=== PATIENT | male | born 1940 | race Caucasian/White ===

== ENCOUNTER 2017-04-29 11:54 | Emergency (ER) | payer OTHER ==
[2017-04-29] MEDS ORDERED: NS 1,000 ML IV ONE (12:39)
--- NOTE | 2017-04-29 12:59 | EDPHY ---
H & P Stated Complaint: cough, fall from bed Time Seen by Provider: 04/29/17 12:28 - Personal History Current Tetanus/Diphtheria Vaccine: No Current Tetanus Diphtheria and Acellular Pertussis (TDAP): No - Medical/Surgical History Hx Asthma: No Hx Chronic Respiratory Disease: No Hx Diabetes: Yes Hx Cardiac Disease: Yes Hx Renal Disease: No Hx Cirrhosis: No Hx Alcoholism: No Hx HIV/AIDS: No Hx Splenectomy or Spleen Trauma: No Other PMH: CAD, 8 cardiac stents, NV, CABG, R hip repair, DM, - Social History Smoking Status: Never smoked Constitutional: Initial Vital Signs Temperature (C) 37 C 04/29/17 12:01 Heart Rate 111 H 04/29/17 12:01 Respiratory Rate 20 04/29/17 12:01 Blood Pressure 147/89 H 04/29/17 12:01 O2 Sat (%) 90 L 04/29/17 12:01 O2 Delivery Mode Room Air Allergies/Adverse Reactions: No Known Allergies Allergy (Unverified 04/29/17 11:59) Home Medications: Medication Instructions Recorded Isosorbide Dinitrate 04/29/17 Lantus 100 UNITS/ML (*) 04/29/17 Lisinopril 04/29/17 Metoprolol Tartrate 04/29/17 Oxycodone HCl 04/29/17 Pantoprazole Sodium 04/29/17 Plavix 04/29/17 traMADol 04/29/17 Medical Decision Making - Diagnostics Imaging Results: Imaging Impressions Chest X-Ray 04/29/17 12:38 Impression: 1. Previous open heart surgery. 2. No active cardiopulmonary disease seen. Imaging: Discussed imaging studies w/ machine scallop cutter Radiologist, I viewed and interpreted images myself ED Course/Re-evaluation: CHIEF COMPLAINT: Fevers chills cough and a fall this morning HISTORY OF PRESENT ILLNESS: Anticoagulated 76-year-old gentleman whose is currently admitted to the hospital for significant influenza with hypoxemia. Began getting ill around new 's Lorie. His symptoms have developed to the point where he really can't out of bed without assistance because he is too weak. His daughter is at the bedside and he is unable to really come down to eat and drink in even if she brings food and soup up to him he does not really seem to eat or drink much. He is quite alert and oriented and really she is complaining of generalized body aches and weakness and cough is not very significant. He is also complaining of some right hip pain and lower abdominal pain after his fall when he got up in the middle the night to try and go to the bathroom. He said he only fell onto a carpet from level of the bed and he was able to ambulate afterward however he has significant pain in the right side of his pelvis when he does ambulate. He has a significant cardiac history but none the symptoms are reminiscent of any cardiac process he has had. REVIEW OF SYSTEMS: A 10 point review of systems was performed and is negative with the exception of the elements mentioned in the history of present illness. PHYSICAL EXAM: HR, BP, O2 Sat, RR. Temp noted General Appearance: Alert, well hydrated, appropriate, and non-toxic appearing. Head: Atraumatic without scalp tenderness or obvious injury Eyes: Pupils equal, round, reactive to light and accommodation, EOMI, no trauma , no injection. Ears: Clear bilaterally, no perforation, normal landmarks Nose: Atraumatic, no rhinorrhea, clear. Throat: There is no erythema or exudates, no lesions, normal tonsils, mucus membranes moist. Neck: Supple, 2+ carotid upstroke, nontender, no lymphadenopathy. Respiratory: No retractions, no distress, no wheezes, and no accessory muscle use. Lungs are clear to auscultation bilaterally. Cardiovascular: Regular rate and rhythm, no murmurs, rubs, or gallops. Bilateral carotid, radial, dorsalis pedis, and posterior tibial pulses intact. Good capillary refill all extremities. Gastrointestinal: Abdomen is soft, tenderness across the lower quadrants which occurred after his fall, non-distended, no masses, no rebound, no guarding, no peritoneal signs. Musculoskeletal: Right hip pain otherwise, Normal active ROM of all extremities , atraumatic. Neurological: Alert, appropriate, and interactive. The patient has normal DTRs and non-focal cranial nerves, motor, sensory, and cerebellar exam. Skin: No rashes, good turgor, no nodules on palpation. Past medical history: Hypertension, coronary artery disease, gastroesophageal reflux disease Past surgical history: Stent placement currently on Plavix Family history: Noncontributory Social history: As mentioned above this patient is currently admitted to the hospital for influenza. He does not use tobacco, he uses a minimal amount of alcohol socially, he lives at home with his , he is accompanied here by his daughter. DIAGNOSTICS/PROCEDURES/CRITICAL CARE TIME: Study: PA and Lateral Chest X-ray Indication: Cough Results: After viewing the images myself on the PACS system. My interpretation of the images is: no acute process. The radiologist interpretation is pending at the time of this dictation. DIFFERENTIAL DIAGNOSIS: The differential diagnosis for the patient's fever included but was not limited to pneumonia, influenza, viral syndrome, meningitis , and sepsis. MEDICAL DECISION MAKING: This 76-year-old gentleman has been recently exposed to influenza. He has body aches and cough and clinically appears to have influenza. Additionally, this patient has a room air saturation at 90% which is somewhat borderline. He is on Plavix and I am concerned that the fall of cause some bleeding. Plan for chest x-ray. I am performing laboratory studies include influenza swab. Additionally I am performing CT scan of his abdomen and pelvis due to his lower abdominal pain and right pelvic pain after his fall. The fall was clearly not syncopal was clearly mechanical because he is weak febrile and somewhat hydrated. Chest x-ray negative for acute processes. Laboratory studies reviewed. Patient has borderline hyponatremia. Flu A positive. 13:47 Reassessed patient. Discussed positive influenza results. He currently feels he will be stable for discharge home. CT abdomen/pelvis is currently pending. 14:[address] Ivey, radiologist. CT abdomen/pelvis negative for acute processes. Plan to road test the patient to see if he feels well enough to go home. His daughter is available to help provide care at home. 15:03 Patient is ambulating without difficulty. Patient is non-toxic appearing, not hypoxemic. He would like to go home. Plan to discharge in good condition. He understands to rest and stay well-hydrated. Follow up and return precautions discussed. He is comfortable with this plan. - Data Points Laboratory Results: Laboratory Results 04/29/17 13:07 04/29/17 13:07 04/29/17 04/29/17 04/29/17 13:07 13:07 13:07 WBC 3.86 10^3/uL 10^3/uL (3.80-9.50) RBC 4.98 10^6/uL 10^6/uL (4.40-6.38) Hgb 14.3 g/dL g/dL (13.7-17.5) POC Hgb Hct 42.2 % % (40.0-51.0) POC Hct MCV 84.7 fL fL (81.5-99.8) MCH 28.7 pg pg (27.9-34.1) MCHC 33.9 g/dL g/dL (32.4-36.7) RDW 15.3 % H % (11.5-15.2) Plt Count 193 10^3/uL 10^3/uL (150-400) MPV 11.0 fL fL (8.7-11.7) Neut % (Auto) 68.6 % % (39.3-74.2) Lymph % (Auto) 11.7 % L % (15.0-45.0) [place] % (Auto) 18.9 % H % (4.5-13.0) Eos % (Auto) 0.0 % L % (0.6-7.6) Baso % (Auto) 0.3 % % (0.3-1.7) Nucleat RBC Rel Count 0.0 % % (0.0-0.2) Absolute Neuts (auto) 2.65 10^3/uL 10^3/uL (1.70-6.50) Absolute Lymphs (auto) 0.45 10^3/uL L 10^3/uL (1.00-3.00) Absolute Monos (auto) 0.73 10^3/uL 10^3/uL (0.30-0.80) Absolute Eos (auto) 0.00 10^3/uL L 10^3/uL (0.03-0.40) Absolute Basos (auto) 0.01 10^3/uL L 10^3/uL (0.02-0.10) Absolute Nucleated RBC 0.00 10^3/uL 10^3/uL (0-0.01) Immature Gran % 0.5 % % (0.0-1.1) Immature Gran # 0.02 10^3/uL 10^3/uL (0.00-0.10) PT INR APTT VBG Lactic Acid 1.4 mmol/L mmol/L (0.7-2.1) POC Sodium Sodium 129 mEq/L L mEq/L (134-144) POC Potassium Potassium 4.5 mEq/L mEq/L (3.5-5.2) POC Chloride Chloride 95 mEq/L L mEq/L (97-110) Carbon Dioxide 22 mEq/l mEq/l (22-31) Anion Gap 12 mEq/L mEq/L (8-16) POC BUN BUN 18 mg/dL mg/dL (7-23) Creatinine 1.0 mg/dL mg/dL (0.7-1.3) POC Creatinine Estimated GFR > 60 Glucose 241 mg/dL H mg/dL (70-100) POC Glucose Calcium 9.8 mg/dL mg/dL (8.5-10.4) Total Bilirubin 0.5 mg/dL mg/dL (0.1-1.4) Procalcitonin 0.10 ng/mL ng/mL (0.02-0.10) Nasal Influenza A PCR Nasal Influenza B PCR 04/29/17 04/29/17 04/29/17 13:04 13:04 11:05 WBC RBC Hgb POC Hgb 16.0 gm/dL gm/dL (13.7-17.5) Hct POC Hct 47 % % (40-51) MCV MCH MCHC RDW Plt Count MPV Neut % (Auto) Lymph % (Auto) [place] % (Auto) Eos % (Auto) Baso % (Auto) Nucleat RBC Rel Count Absolute Neuts (auto) Absolute Lymphs (auto) Absolute Monos (auto) Absolute Eos (auto) Absolute Basos (auto) Absolute Nucleated RBC Immature Gran % Immature Gran # PT 12.8 SEC SEC (12.0-15.0) INR 0.94 (0.83-1.16) APTT 34.5 SEC SEC (23.0-38.0) VBG Lactic Acid POC Sodium 130 mEq/L L mEq/L (134-144) Sodium POC Potassium 4.0 mEq/L mEq/L (3.3-5.0) Potassium POC Chloride 91 mEq/L L mEq/L (97-110) Chloride Carbon Dioxide Anion Gap POC BUN 17 mg/dL mg/dL (7-23) BUN Creatinine POC Creatinine 1.0 mg/dL mg/dL (0.7-1.3) Estimated GFR Glucose POC Glucose 251 mg/dL H mg/dL (70-100) Calcium Total Bilirubin Procalcitonin Nasal Influenza A PCR FLU A DETECTED (NEGATIVE) Nasal Influenza B PCR NEGATIVE FOR FLU B (NEGATIVE) Medications Given: Discontinued Medications Acetaminophen (Tylenol) 1,000 mg PO EDNOW ONE Stop: 04/29/17 14:55 Last Admin: 04/29/17 14:55 Dose: 1,000 mg Sodium Chloride (Ns) 1,000 mls @ 0 mls/hr IV ONCE ONE; Wide Open PRN Reason: Protocol Stop: 04/29/17 12:40 Last Admin: 04/29/17 13:23 Dose: 1,000 mls Point of Care Test Results: 04/29/17 13:04 POC Sodium 130 L POC Potassium 4.0 POC Chloride 91 L POC BUN 17 POC Creatinine 1.0 POC Glucose 251 H Departure - Departure Clinical Impression: Influenza A Condition: Good Instructions: Influenza (ED) Additional Instructions: 1. Use ibuprofen and Tylenol as needed for fever and body aches. Drink plenty of fluids. Avoid taking narcotic pain medications as much as possible until your influenza has resolved. 2. Follow up with your primary care physician within 72 hours for reevaluation. 3. Return to the emergency department immediately for high fever, severe headache or neck pain, difficulty breathing, abdominal pain, rash or other worsening of condition. Referrals: EDWARD MICHAELS [Other] - As per Instructions Report Scribed for: Speedy Taylor Report Scribed by: Brittney Rodriguez Date of Report: 04/29/17 Time of Report: 13:51
[2017-04-29 13:24] LABS: PLATELET COUNT 193 10^3/uL (150-400)
[2017-04-29 13:44] LABS: INR 0.94 (0.83-1.16); PROTIME(PATIENT) 12.8 SEC (12.0-15.0)
[2017-04-29] MEDS ORDERED: IOPAMIDOL (ISOVUE-300) 100 ML BTL ONE (13:57)
[2017-04-29 14:47] VITALS: BP 174/106; PULSE 92; RESP 18; TEMP 99.7; O2SAT 92
[2017-04-29] MEDS ORDERED: ACETAMINOPHEN 500 MG TAB ONE (14:52)
[2017-04-29] MEDS ORDERED: ACETAMINOPHEN 500 MG TAB PO ONE (14:54)
== END 2017-04-29 15:00 | disposition home or self-care (01) ==
DX: J10.1 Influenza due to other identified influenza virus with other respiratory manifestations (principal); E86.9 Volume depletion, unspecified; E11.9 Type 2 diabetes mellitus without complications; I25.810 Atherosclerosis of coronary artery bypass graft(s) without angina pectoris; I25.2 Old myocardial infarction; I10 Essential (primary) hypertension; Z95.5 Presence of coronary angioplasty implant and graft; Z79.4 Long term (current) use of insulin
CPT/HCPCS: 71046; 74177; 96360; 99285; Q9967; 82947-QW

== ENCOUNTER → 2018-03-30 | Outpatient (CLI) | payer OTHER | LOC: FIMAGING 14:25 | PROVIDERS: ATTEND Family Medicine Geriatric Medicine | DX: J90 Pleural effusion, not elsewhere classified (principal) ==

== ENCOUNTER → 2018-04-13 | Outpatient (CLI) | payer OTHER | LOC: FIMAGING 13:37 | DX: I82.621 Acute embolism and thrombosis of deep veins of right upper extremity (principal) ==

== ENCOUNTER → 2018-04-14 | Outpatient (CLI) | payer OTHER | LOC: CIMAGING 09:15 | DX: I25.10 Atherosclerotic heart disease of native coronary artery without angina pectoris (principal); K44.9 Diaphragmatic hernia without obstruction or gangrene; I71.2 Thoracic aortic aneurysm, without rupture | CPT/HCPCS: 71250-PO ==

== ENCOUNTER 2018-04-28 15:44 | Inpatient (IN) | payer OTHER ==
--- NOTE | 2018-04-28 15:48 | EDPHY ---
H & P Time Seen by Provider: 04/28/18 15:48 HPI/ROS: Chief complaint. Stroke activation HPI. 77-year-old male here by EMS. Last seen normal 2:00 p.m. By his . Patient then developed speech difficulty and right arm and leg weakness. Symptoms have waxed and waned but do continue. He did fall and strike his head 3 days ago but did not lose consciousness and it was not significant enough that he felt he needed evaluation. 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 He has no residual symptoms since then. He does have some shortness of breath but no chest pain. Complains of mild headache. Does have slight visual change in the left eye however this has been a chronic problem. He also has some back pain on the left side for which he was going to receive an injection about 3 weeks ago. He was off Plavix for several days but has been back on his Plavix for about 2 weeks. Otherwise no recent surgery or abnormal bleeding noted. ROS 10 systems were reviewed and negative with the exception of the elements mentioned in the history of present illness Past Medical/Surgical History: Hypertension, diabetes, coronary artery disease with stents, multiple MIs Social History: , nonsmoker, no alcohol Smoking Status: Never smoked Physical Exam: General Appearance: Male moderate distress. Vital signs are stable Eyes: Pupils equal and round no pallor or injection. ENT, Mouth: Mucous membranes are moist. Respiratory: There are no retractions, lungs are clear to auscultation. Cardiovascular: Regular rate and rhythm. Gastrointestinal: Abdomen is soft and nontender, no masses, bowel sounds normal. Neurological: Awake and alert, speech is slurred. Patient has weakness to right arm and right leg. He notes numbness to right cheek right arm and right leg. He has pronator drift on the right. Cranial nerves show possible slight left mouth droop. [id number] is abnormal on the right. Raising the right leg off the bed is difficult. Findings are normal on the left. Skin: Warm and dry, no rashes. Musculoskeletal: Neck is supple nontender. Extremities symmetrical, full range of motion. Psychiatric: Patient is oriented X 3, there is no agitation. Constitutional: Initial Vital Signs Temperature (C) 36.5 C 04/28/18 15:45 Heart Rate 85 04/28/18 15:45 Respiratory Rate 20 04/28/18 15:45 Blood Pressure 116/68 04/28/18 15:45 O2 Sat (%) 96 04/28/18 15:45 O2 Delivery Mode Room Air Allergies/Adverse Reactions: No Known Allergies Allergy (Unverified 04/28/18 15:56) Home Medications: Medication Instructions Recorded Isosorbide Dinitrate 04/29/17 Lantus 100 UNITS/ML (*) 04/29/17 Lisinopril 04/29/17 Metoprolol Tartrate 04/29/17 Oxycodone HCl 04/29/17 Pantoprazole Sodium 04/29/17 Plavix 04/29/17 traMADol 04/29/17 Medical Decision Making - Diagnostics EKG Interpretation: EKG interpreted by me shows normal sinus rhythm normal interval. 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 QRS is otherwise normal. There is no significant ST elevation or depression. No arrhythmia. The rate is 84 Imaging Results: Imaging Impressions Head CT 04/28/18 15:46 Impression: 1. Moderate atrophy. 2. No hemorrhage, mass effect, or definite acute peripheral infarct. 3. Moderate nonspecific hypodensities in the white matter of bilateral cerebral hemispheres. Differential diagnosis includes microvascular ischemic disease, post-infectious/post-inflammatory sequela, atypical demyelinating disease, or migraine-related sequela. Small white matter lacunar infarcts may also have this appearance. If symptoms worsen, additional imaging may be necessary. Findings discussed with Steven Saleh M.D. at 16:00 hour, 04/28/2018. Chest X-Ray 04/28/18 15:48 Impression: No acute abnormality. Head CT 04/28/18 16:43 Impression: No evidence of acute intracranial hemorrhage. Noncontrast head CT reviewed by me and discussed with Dr. Montiel shows chronic changes however no evidence for intracranial bleeding One-view chest x-ray interpreted by me is nonacute Perfusion studies of head and neck CT a show multiple areas of narrowing, stenosis, calcification. However there is no large vessel occlusion. Procedures: IV normal saline Blood sugar is 166 by i-STAT ED Course/Re-evaluation: I consulted and discussed the case with for [facility]. He is examined using the robot. Dr. Honeycutt recommends tPA. He this will then be followed by CT angiogram of head and neck. 4:40 p.m. patient developed headache during tPA. The tPA is stop. A emergent noncontrast head CT is ordered Re-evaluation 5:30 p.m. Patient is stable. Patient, his daughter and I discussed imaging and lab results. We discussed treatment plan including recommendation for admission. They expressed understanding and agreement I consulted and discussed the case with , hospitalist, who agrees to the admission Differential Diagnosis: I considered intracranial bleeding versus thrombotic stroke. Patient had a headache during the tPA administration and I considered intracranial bleeding again. No evidence of this. This appears to be thrombotic stroke - Data Points Laboratory Results: Laboratory Results 04/28/18 15:50 04/28/18 15:50 04/28/18 04/28/18 04/28/18 15:50 15:50 15:50 WBC 6.32 10^3/uL 10^3/uL (3.80-9.50) RBC 4.77 10^6/uL 10^6/uL (4.40-6.38) Hgb 12.6 g/dL L g/dL (13.7-17.5) POC Hgb Hct 41.3 % % (40.0-51.0) POC Hct MCV 86.6 fL fL (81.5-99.8) MCH 26.4 pg L pg (27.9-34.1) MCHC 30.5 g/dL L g/dL (32.4-36.7) RDW 14.5 % % (11.5-15.2) Plt Count 345 10^3/uL 10^3/uL (150-400) MPV 10.7 fL fL (8.7-11.7) Neut % (Auto) 56.8 % % (39.3-74.2) Lymph % (Auto) 29.9 % % (15.0-45.0) [place] % (Auto) 10.0 % % (4.5-13.0) Eos % (Auto) 2.2 % % (0.6-7.6) Baso % (Auto) 0.8 % % (0.3-1.7) Nucleat RBC Rel Count 0.0 % % (0.0-0.2) Absolute Neuts (auto) 3.59 10^3/uL 10^3/uL (1.70-6.50) Absolute Lymphs (auto) 1.89 10^3/uL 10^3/uL (1.00-3.00) Absolute Monos (auto) 0.63 10^3/uL 10^3/uL (0.30-0.80) Absolute Eos (auto) 0.14 10^3/uL 10^3/uL (0.03-0.40) Absolute Basos (auto) 0.05 10^3/uL 10^3/uL (0.02-0.10) Absolute Nucleated RBC 0.00 10^3/uL 10^3/uL (0-0.01) Immature Gran % 0.3 % % (0.0-1.1) Immature Gran # 0.02 10^3/uL 10^3/uL (0.00-0.10) PT 13.1 SEC SEC (12.0-15.0) INR 0.97 (0.83-1.16) POC Sodium Sodium 132 mEq/L L mEq/L (135-145) POC Potassium Potassium 4.1 mEq/L mEq/L (3.5-5.2) POC Chloride Chloride 98 mEq/L mEq/L (97-110) Carbon Dioxide 25 mEq/l mEq/l (22-31) Anion Gap 9 mEq/L mEq/L (6-14) POC BUN BUN 11 mg/dL mg/dL (7-23) Creatinine 1.3 mg/dL mg/dL (0.7-1.3) POC Creatinine Estimated GFR 54 Glucose 163 mg/dL H mg/dL (70-100) POC Glucose Calcium 9.5 mg/dL mg/dL (8.5-10.4) NT-Pro-B Natriuret Pep 453 pg/mL H pg/mL (0-450) 04/28/18 15:49 WBC RBC Hgb POC Hgb 14.6 gm/dL gm/dL (13.7-17.5) Hct POC Hct 43 % % (40-51) MCV MCH MCHC RDW Plt Count MPV Neut % (Auto) Lymph % (Auto) [place] % (Auto) Eos % (Auto) Baso % (Auto) Nucleat RBC Rel Count Absolute Neuts (auto) Absolute Lymphs (auto) Absolute Monos (auto) Absolute Eos (auto) Absolute Basos (auto) Absolute Nucleated RBC Immature Gran % Immature Gran # PT INR POC Sodium 137 mEq/L mEq/L (135-145) Sodium POC Potassium 4.0 mEq/L mEq/L (3.3-5.0) Potassium POC Chloride 99 mEq/L mEq/L (97-110) Chloride Carbon Dioxide Anion Gap POC BUN 10 mg/dL mg/dL (7-23) BUN Creatinine POC Creatinine 1.4 mg/dL H mg/dL (0.7-1.3) Estimated GFR Glucose POC Glucose 166 mg/dL H mg/dL (70-100) Calcium NT-Pro-B Natriuret Pep Medications Given: Discontinued Medications Alteplase, Recombinant (Activase) 7.70810 mg 0.09 mg/kg (7.07970 mg) IV ONCE ONE PRN Reason: Protocol Stop: 04/28/18 16:17 Last Admin: 04/28/18 16:29 Dose: Not Given Alteplase, Recombinant (Activase) 65.18177 mg 0.81 mg/kg (65.09704 mg) IV ONCE ONE PRN Reason: Protocol Stop: 04/28/18 16:17 Last Admin: 04/28/18 16:30 Dose: Not Given Alteplase, Recombinant (Activase) 7.2405 mg 0.09 mg/kg (7.2405 mg) IV ONCE ONE PRN Reason: Protocol Stop: 04/28/18 16:21 Last Admin: 04/28/18 16:35 Dose: 7.2405 mg Alteplase, Recombinant (Activase) 65.1645 mg 0.81 mg/kg (65.1645 mg) IV ONCE ONE PRN Reason: Protocol Stop: 04/28/18 16:21 Last Admin: 04/28/18 16:36 Dose: 65.1645 mg Sodium Chloride (Ns) 50 mls @ 0 mls/hr IV EDNOW ONE PRN Reason: Per Protocol Stop: 04/28/18 16:17 Last Admin: 04/28/18 16:39 Dose: 50 mls Sodium Chloride (Ns) 50 mls @ 0 mls/hr IV EDNOW ONE PRN Reason: Per Protocol Stop: 04/28/18 16:21 Last Admin: 04/28/18 16:57 Dose: Not Given Point of Care Test Results: Chemistry 04/28/18 15:49 POC Sodium 137 mEq/L mEq/L (135-145) POC Potassium 4.0 mEq/L mEq/L (3.3-5.0) POC Chloride 99 mEq/L mEq/L (97-110) POC BUN 10 mg/dL mg/dL (7-23) POC Creatinine 1.4 mg/dL H mg/dL (0.7-1.3) POC Glucose 166 mg/dL H mg/dL (70-100) ISTAT H&H 04/28/18 15:49 POC Hgb 14.6 gm/dL gm/dL (13.7-17.5) POC Hct 43 % % (40-51) Departure - Departure Disposition: [facility] Inpatient Acute Clinical Impression: Acute ischemic stroke Condition: Fair Referrals: Patient,NotPresent [Primary Care Provider] - As per Instructions
[2018-04-28 15:59] LABS: PLATELET COUNT 345 10^3/uL (150-400)
[2018-04-28 16:05] LABS: INR 0.97 (0.83-1.16); PROTIME(PATIENT) 13.1 SEC (12.0-15.0)
[2018-04-28] MEDS ORDERED: NS 50 ML IV ONE ×2 (16:16→16:20)
[2018-04-28] MEDS ORDERED: ALTEPLASE 1 MG/ML SYR IV ONE ×2 (16:16→16:20)
[2018-04-28] MEDS ORDERED: ALTEPLASE 100 MG/100 ML VIAL IV ONE ×3 (16:16→16:20)
--- NOTE | 2018-04-28 16:37 | CPEKG ---
Test Reason : OPEN Blood Pressure : / mmHG Vent. Rate : 084 BPM Atrial Rate : 084 BPM P-R Int : 176 ms QRS Dur : 100 ms QT Int : 400 ms P-R-T Axes : 059 253 045 degrees QTc Int : 473 ms Sinus rhythm Probable right ventricular hypertrophy Inferior infarct, old Confirmed by Steven Saleh ([id number]) on 04/28/2018 4:36:45 PM Referred By: Confirmed By:Steven Saleh
[2018-04-28] MEDS ORDERED: ACETAMINOPHEN 325 MG TAB PO PRN (20:38)
[2018-04-28] MEDS ORDERED: HYDROmorphONE/DILAUDID 1 MG/ML INJ IVP PRN (20:38)
[2018-04-28] MEDS ORDERED: HYDROCODONE/APAP 5/325 TAB PO PRN (20:38)
[2018-04-28] MEDS ORDERED: PROMETHAZINE HCL 25 MG/ML INJ IVP PRN (20:38)
[2018-04-28] MEDS ORDERED: ONDANSETRON 4 MG/2 ML VIAL IVP PRN (20:38)
[2018-04-28] MEDS ORDERED: ONDANSETRON DISINTEGRATING 4 MG TAB PO PRN (20:38)
[2018-04-28] MEDS ORDERED: D50W 25 GM/50 ML SYR IVP PRN (20:42)
[2018-04-28] MEDS ORDERED: CALCIUM CARBONATE 500 MG CHEWABLE TAB PO PRN (21:21)
[2018-04-28] MEDS: oxyCODONE IR 5 MG TAB PO PRN ×2 (21:41→22:29)
--- NOTE | 2018-04-28 23:24 | PDGENHP ---
History and Physical - Chief Complaint right upper and lower extremity weakness, speech difficulties - History of Present Illness Patient is a 77 yo M with PMH of CAD, sp multiple stents and 6v CABG as well as CVA in September who presents with complaints of right upper and lower extremity weakness and slurred speech. He was last seen normal around 2 pm, arrived in ER around 330pm. He was seen by ER doctor and [facility] neurology who following head CT felt that TPA was indicated. This was initiated and then patient developed headache and it was discontinued for stat head CT, head CT revealed no changes and TPA was resumed. My evaluation occurred after those events, while TPA still infusing. Patient notes that the speech difficulties had improved, and there was some improvement in the right sided weakness as well. Patient notes that these sxs are very similar to his prior stroke sxs which he also received tpa for and which he has had no residual sxs from. He notes the only other change to his usual health is that he has had several falls in the last 2 weeks which is not normal for him. He does have chronic back pain and is followed by [facility] who were planning injections and for that reason he has been holding his plavix for 2 weeks. He notes that since the last fall he has had pain in his left groin that is associated with painful urination. He notes that there seems to be something wrong with his balance recently and that is new for him as well. History Information - Allergies/Home Medication List Allergies/Adverse Reactions: No Known Allergies Allergy (Unverified 04/28/18 15:56) Home Medications: Clopidogrel Bisulfate [Plavix (*)] 75 mg PO DAILY 04/29/17 [Last Taken 04/28/18] Isosorbide Mononitrate [Isosorbide Mononitrate ER] 60 mg PO DAILY 04/29/17 [ Last Taken 04/28/18] Lantus 100 UNITS/ML (*) 30 units SQ HS 04/29/17 [Last Taken 04/27/18] Lisinopril [Zestril 40 mg (*)] 40 mg PO DAILY 04/29/17 [Last Taken 04/28/18] Metoprolol Tartrate 04/29/17 [Last Taken Unknown] Pantoprazole Sodium 40 mg PO DAILY 04/29/17 [Last Taken Unknown] traMADol [Ultram 50 mg (*)] 50 mg PO Q4 PRN 04/29/17 [Last Taken Unknown] Escitalopram Oxalate [Lexapro] 10 mg PO DAILY 04/28/18 [Last Taken 04/28/18] Gabapentin [Neurontin 100 MG (*)] 100 mg PO HS 04/28/18 [Last Taken 04/27/18] Mirtazapine 15 mg PO HS 04/28/18 [Last Taken 04/27/18] Tamsulosin HCl [Flomax 0.4 MG (*)] 0.4 mg PO DAILY 04/28/18 [Last Taken 04/28/18 ] tiZANidine HCL [Zanaflex] 4 mg PO TID PRN 04/28/18 [Last Taken Unknown] traZODone [traZODONE 100MG (*)] 100 mg PO HS 04/28/18 [Last Taken 04/27/18] I have personally reviewed and updated: family history, medical history, social history, surgical history - Past Medical History coronary artery disease, diabetes type 2, hypertension, hyperlipidemia Additional medical history: recently diagnosed AAA. chronic back pain - Surgical History Reports: coronary bypass surgery, coronary stent - Family History Positive for: CAD (father, brother and mother of MIs) - Social History Smoking Status: Never smoked Alcohol Use: None Drug Use: None Additional social history: recently moved here from [place], accompanied by his daughter Review of Systems Review of Systems: ROS: 10pt was reviewed & negative except for what was stated in HPI & below Physical Exam Physical Exam: Temp Pulse Resp BP Pulse Ox 36.6 C 87 14 114/72 94 04/28/18 19:30 04/28/18 22:30 04/28/18 22:30 04/28/18 22:30 04/28/18 22:30 Constitutional: no apparent distress, appears nourished Eyes: PERRL, anicteric sclera Ears, Nose, Mouth, Throat: moist mucous membranes, hearing normal Cardiovascular: regular rate and rhythym, no murmur, rub, or gallop, No edema Respiratory: no respiratory distress, no rales or rhonchi, clear to auscultation Gastrointestinal: normoactive bowel sounds, soft, non-tender abdomen Genitourinary: no bladder tenderness, other (erythema in left inguinal region without clear skin breakdown) Musculoskeletal: no muscle tenderness, No asymmetric calves Neurologic: AAOx3, weakness (right upper and lower extremity), CN II-XII Intact Psychiatric: interacting appropriately, not anxious, not encephalopathic Lab Data & Imaging Review 04/28/18 15:50 04/28/18 15:50 WBC 6.32 10^3/uL (3.80-9.50) 04/28/18 15:50 RBC 4.77 10^6/uL (4.40-6.38) 04/28/18 15:50 Hgb 12.6 g/dL (13.7-17.5) L 04/28/18 15:50 POC Hgb 14.6 gm/dL (13.7-17.5) 04/28/18 15:49 Hct 41.3 % (40.0-51.0) 04/28/18 15:50 POC Hct 43 % (40-51) 04/28/18 15:49 MCV 86.6 fL (81.5-99.8) 04/28/18 15:50 MCH 26.4 pg (27.9-34.1) L 04/28/18 15:50 MCHC 30.5 g/dL (32.4-36.7) L 04/28/18 15:50 RDW 14.5 % (11.5-15.2) 04/28/18 15:50 Plt Count 345 10^3/uL (150-400) 04/28/18 15:50 MPV 10.7 fL (8.7-11.7) 04/28/18 15:50 Neut % (Auto) 56.8 % (39.3-74.2) 04/28/18 15:50 Lymph % (Auto) 29.9 % (15.0-45.0) 04/28/18 15:50 Mesa % (Auto) 10.0 % (4.5-13.0) 04/28/18 15:50 Eos % (Auto) 2.2 % (0.6-7.6) 04/28/18 15:50 Baso % (Auto) 0.8 % (0.3-1.7) 04/28/18 15:50 Nucleat RBC Rel Count 0.0 % (0.0-0.2) 04/28/18 15:50 Absolute Neuts (auto) 3.59 10^3/uL (1.70-6.50) 04/28/18 15:50 Absolute Lymphs (auto) 1.89 10^3/uL (1.00-3.00) 04/28/18 15:50 Absolute Monos (auto) 0.63 10^3/uL (0.30-0.80) 04/28/18 15:50 Absolute Eos (auto) 0.14 10^3/uL (0.03-0.40) 04/28/18 15:50 Absolute Basos (auto) 0.05 10^3/uL (0.02-0.10) 04/28/18 15:50 Absolute Nucleated RBC 0.00 10^3/uL (0-0.01) 04/28/18 15:50 Immature Gran % 0.3 % (0.0-1.1) 04/28/18 15:50 Immature Gran # 0.02 10^3/uL (0.00-0.10) 04/28/18 15:50 PT 13.1 SEC (12.0-15.0) 04/28/18 15:50 INR 0.97 (0.83-1.16) 04/28/18 15:50 POC Sodium 137 mEq/L (135-145) 04/28/18 15:49 Sodium 132 mEq/L (135-145) L 04/28/18 15:50 POC Potassium 4.0 mEq/L (3.3-5.0) 04/28/18 15:49 Potassium 4.1 mEq/L (3.5-5.2) 04/28/18 15:50 POC Chloride 99 mEq/L (97-110) 04/28/18 15:49 Chloride 98 mEq/L (97-110) 04/28/18 15:50 Carbon Dioxide 25 mEq/l (22-31) 04/28/18 15:50 Anion Gap 9 mEq/L (6-14) 04/28/18 15:50 POC BUN 10 mg/dL (7-23) 04/28/18 15:49 BUN 11 mg/dL (7-23) 04/28/18 15:50 Creatinine 1.3 mg/dL (0.7-1.3) 04/28/18 15:50 POC Creatinine 1.4 mg/dL (0.7-1.3) H 04/28/18 15:49 Estimated GFR 54 04/28/18 15:50 Glucose 163 mg/dL (70-100) H 04/28/18 15:50 POC Glucose 205 mg/dL (70-100) H 04/28/18 20:29 Calcium 9.5 mg/dL (8.5-10.4) 04/28/18 15:50 NT-Pro-B Natriuret Pep 453 pg/mL (0-450) H 04/28/18 15:50 Urine Color YELLOW 04/28/18 22:15 Urine Appearance CLEAR 04/28/18 22:15 Urine pH 5.0 (5.0-7.5) 04/28/18 22:15 Ur Specific Mathis 1.034 (1.002-1.030) H 04/28/18 22:15 Urine Protein NEGATIVE (NEGATIVE) 04/28/18 22:15 Urine Ketones TRACE (NEGATIVE) H 04/28/18 22:15 Urine Blood NEGATIVE (NEGATIVE) 04/28/18 22:15 Urine Nitrate NEGATIVE (NEGATIVE) 04/28/18 22:15 Urine Bilirubin NEGATIVE (NEGATIVE) 04/28/18 22:15 Urine Urobilinogen 2.0 EU (0.2-1.0) H 04/28/18 22:15 Ur Leukocyte Esterase NEGATIVE (NEGATIVE) 04/28/18 22:15 Urine RBC 1-3 /hpf (0-3) 04/28/18 22:15 Urine WBC 3-5 /hpf (0-3) H 04/28/18 22:15 Ur Epithelial Cells 1+ /lpf (NONE-1+) 04/28/18 22:15 Urine Mucus TRACE /lpf (NONE-1+) 04/28/18 22:15 Ur Culture Indicated? NOT INDICATED (NI) 04/28/18 22:15 Urine Glucose 2+ (NEGATIVE) H 04/28/18 22:15 Visualized and Interpreted Chest x-ray results: Yes Chest X-Ray results: no infiltrate Visualized and Interpreted imaging results: Yes Interpretation: head CT: nothing acute x 2. head/neck CTA: diffuse atherosclerotic disease involving carotids and vertebral arteries at greatest 60 % stenosis Visualized and Interpreted EKG results: Yes EKG Interpretation: Positive for: normal sinsus rhythm EKG additional interpertation: e/o old inferior infarct Assessment & Plan Assessment: Acute ischemic stroke (Acute) 77 yo M with hx of CAD, CVA presenting with acute CVA now s/p TPA # acute CVA: presumed based on sxs of acute onset right sided weakness and slurred speech, speech has improved, weakness improving somewhat. Apparently the same sxs he had in September which is a bit strange, do not have access to those records currently and will request they be sent. He is being monitored in ICU post tpa with serial neuro exams. Neurology to consult in am. PT/OT/MACHINE COMPOSITOR to evaluate. This event did occur while being off of plavix x 2 weeks, possibly contributing. Monitoring on tele, echo in am. # CAD: with hx of reportedly 8 stents and 6 v CABG in the past, off plavix x 2 weeks as above, will continue to hold plavix for now given tpa, will hold metoprolol as well given hypotension, monitoring on tele # carotid/vertebral atherosclerosis: with up to 60% stenosis and presumably underlying recurrent CVA, no lesions that would require urgent intervention currently but will likely benefit from surgical consultation, will defer to neurology call in the am # DM: at home on 30 of lantus at HS but not eating much and glucose has been relatively low, will give lower dose and monitor on ssi for now, check a1c for secondary risk modification # HLD: apparently not on statin at home which is strange given prior cva/dm and CAD, lipid panel pending, will need to clarify if patient is not on statin due to intolerance or just omission, plan to start atorvastatin in am # AAA: per daughter this was recently incidentally noted and patient requires f/ u with cardiology which has not yet been established, will attempt to obtain those records to determine size and location and if unable consider further imaging in am # chronic back pain: followed by [facility], plan for injections, as above will work to get records # groin pain: patient stating it feels as though he has a skin wound in his groin/scrotal region but on exam nothing clearly visible other than mild erythema in the groin fold--difficult exam and patient requesting further evaluation be deferred to am, will ask wound care to evaluate further # recurrent falls: this was occurring in the 2 weeks prior to his presenting issues and is of uncertain cause, he states he has new gait instability that was never present before, pt/ot to evaluate, neurology to consult in the am # IP status, high risk requiring TPA and ICU monitoring, > 45 min of critical care time spent in evaluation of patient, interpretation of imaging and labs, coordination with other doctors and nurses Patient new to my care. Old records reviewed and summarized as above. Care plan reviewed with ER doctor and further hx obtained from patients daughter present at bedside.
[2018-04-29] MEDS ORDERED: traMADol 50 MG TAB PO PRN (00:18)
[2018-04-29] MEDS ORDERED: NS 500 ML IV ONE (03:35)
[2018-04-29] MEDS: oxyCODONE IR 5 MG TAB PO PRN ×3 (05:32→21:18)
[2018-04-29 05:50] LABS: PLATELET COUNT 258 10^3/uL (150-400)
--- NOTE | 2018-04-29 08:37 | PDMN ---
Medical Necessity Medical necessity: [facility] – [place] M83 Ischemic Stroke: 77 yo w/ acute CVA, s/p tPA, inpt only
[2018-04-29] MEDS: INSULIN LISPRO 100 UNIT/ML SC SCH ×3 (09:08→17:52)
[2018-04-29] MEDS: ESCITALOPRAM OXALATE 10 MG TAB PO SCH (09:17)
[2018-04-29] MEDS: PANTOPRAZOLE SODIUM 40 MG TAB PO SCH (09:17)
[2018-04-29] MEDS: TAMSULOSIN HCL 0.4 MG CAP PO SCH (09:17)
[2018-04-29] MEDS: ATORVASTATIN CALCIUM 40 MG TAB PO SCH (09:17)
--- NOTE | 2018-04-29 09:52 | ASMTLACE ---
BRIANDA Acuity / Level of Answers: Yes Care: Did the patient have an inpatient admission? Comorbidities - select Answers: Cerebrovascular disease all that apply (CVA, TIA, aneurysms, vasc ular dementia) Chronic pulmonary disease Other Notes: SVT; DVT; Hep C # of Emergency department Answers: 3-4 visits in the last 6 months Social determinants Answers: History of substance abuse (ETOH, street drugs, prescription drugs, etc.) Homelessness (street, assisted) History of trauma (PTSD, child abuse, domestic violence, etc.) Mental health diagnosis (anxiety, depression, pers onality disorders, etc.) Score: 22 Date Signed: 04/29/2018 09:52 AM Electronically Signed By:Angela Grey
--- NOTE | 2018-04-29 10:03 | ASMTLACE ---
BRIANDA Acuity / Level of Answers: Yes Care: Did the patient have an inpatient admission? Comorbidities - select Answers: Cerebrovascular disease all that apply (CVA, TIA, aneurysms, vasc ular dementia) Coronary Artery Disease Diabetes (uncontrolled or controlled) Opioid dependence / Chronic pain Previous myocardial infarction Other Notes: HTN # of Emergency department Answers: 1-2 visits in the last 6 months Score: 14 Date Signed: 04/29/2018 10:02 AM Electronically Signed By:Angela Grey
--- NOTE | 2018-04-29 10:23 | ECHO ---
[email or web address] [address] [address] Main: [phone] Fax: Transthoracic Echocardiogram Name: JORDI PROCTOR MR#: [id number] Study Date: 04/29/2018 Study Time: 07:27 AM Date of : 1940 Age: 77 year(s) Height: 177.8 cm (70 in.) Weight: 76.2 kg (168 lb.) BSA: 1.94 m2 Gender: Male Examination: Echo Indication: Ischemic Stroke Image Quality: Adequate Contrast: Requested by: Justus Hernadez BP: 105 mmHg/51 mmHg Heart Rate: Rhythm: Indication: Ischemic Stroke Procedure Staff Kitchen Helper: Latonya Reeves RD Reading Physician: Inderjit Middleton MD Requesting Provider: Conclusions: Normal global systolic LV function. EF is 58 %. An agitated saline study was performed and was negative for intracardiac shunting. Mild mitral valve regurgitation is present. Mild calcific aortic valve stenosis. Mild to moderate aortic valve regurgitation. Trivial tricuspid valve regurgitation. Mildly dilated ascending aorta measuring 4.2 cm. Measurements: Chambers Valvular Assessment AV/MV Valvular Assessment TV/PV Normal Normal Normal Name Value Range Name Value Range Name Value Range Ao Nuvia (2D): 3.6 cm (1.4 cm-2.6 AV Vmax: 2.30 m/s (1 m/s-1.7 PV Vmax: 1.05 m/s (0.6 m/s-0.9 cm) m/s) m/s) IVSd (2D): 1.2 cm (0.6 cm-1.1 AV maxP mmHg ( - ) PV PGmax: 4 mmHg ( - ) cm) AV meanP mmHg ( - ) LVDd (2D): 4.9 cm (4.2 cm-5.9 PIETRO (VTI): 1.9 cm ( - ) cm) AR (PHT): 454 ms ( - ) LVDs (2D): 3.3 cm (2.1 cm-4 MV E Vmax: 0.83 m/s ( - ) cm) MV A Vmax: 1.12 m/s ( - ) LVPWd (2D): 1.2 cm (0.6 cm-1 cm) MV E/A: 0.74 ( - ) LVOTd 2.3 cm 2.3 cm mm MV PHT: 0.081 s ( - ) LVEF (BP): 58 % (>=55 %) MVA (PHT): 2.7 s ( - ) RVDd(2D): 3.3 cm (1.9 cm-3.8 cmmm) Continued Measurements: Chambers Valvular Assessment AV/MV Patient: JORDI PROCTOR Study Date: 04/29/2018 Page 1 of 2 07:27 AM Name Value Name Value LADs: 4.1 cm MV DecTime: 275 m/s LADs Lon.2 cm MV E' Septal: 0.05 m/s LA Area: 16.0 cm2 MV E/E' Septal: 16.10 LA Volume: 40 ml MV E/E' Lateral: 9.40 LA Volume Index: 20.6 ml/m2 AR Vmax: 3.51 cm/s RA Area: 16.3 cm2 Additional Vessels Name Value Ao Ascendin.2 cm Findings: Left Ventricle: Normal size left ventricle. Mild concentric LV hypertrophy. Normal global systolic LV function. EF is 58 %. Normal diastolic LV function. Possible subtle basal inferior hypokinesis. Right Ventricle: Normal size right ventricle. Normal RV function. Left Atrium: The left atrium is normal in size. An agitated saline study was performed and was negative for intracardiac shunting. Right Atrium: The right atrium is normal in size. Mitral Valve: The mitral valve is normal in appearance and function. Mild mitral valve regurgitation is present. No mitral stenosis is present. Aortic Valve: The aortic valve is tri-leaflet. Mild calcific aortic valve stenosis. Mild to moderate aortic valve regurgitation. Mild to moderate calcification of the aortic valve leaflets. Tricuspid Valve: The tricuspid valve is normal in appearance and function. Trivial tricuspid valve regurgitation. Pulmonic Valve: The pulmonic valve is normal in appearance and function. There is no pulmonic regurgitation seen. Aorta: The aorta is normal. Normal size aortic root measuring 3.6 cm. Mildly dilated ascending aorta measuring 4.2 cm. IVC: The IVC is normal sized. Pericardium: No pericardial effusion. (No Signature Object) Patient: JORDI PROCTOR Study Date: 04/29/2018 Page 2 of 2 07:27 AM [id number]
--- NOTE | 2018-04-29 10:43 | NEUROPROG ---
Assessment: [id number] - Neurology Consult: - CC: Dr. Justus Hernadez consulted neurology for suspected stroke. - HPI: Pt with prior CAD (stents, coronary bypass) and prior stroke in September 2017 was brought to [facility] ER with right sided weakness and speech problems. Pt was given TPA and his symptoms improved. He reported that his prior stroke in September 2017 had similar symptoms that improved with TPA w/o residual problems. He has chronic back pain and is followed by [facility]. He also has been noting worsening balance with falls recently. Head CT showed no acute changes. CTA head/neck showed multiple areas of atherosclerotic stenosis up to 50% in the carotids. Pt was supposed to be on Plavix but noted he had been off it for a few weeks. I initially saw the patient on 04/29/18. His neurologic exam was normal. - PMHx: CAD, DM2, HTN, HLD, AAA, chronic back pain, coronary bypass surgery, cardiac stent, CVA - SHx: no tobacco FHx: CAD, [place] - ROS: Pt denied acute fever, total vision loss, active severe chest pain, respiratory failure, total body severe rash, total bowel/bladder incontinence, psychosis, active seizures, or active bleeding - O: VS reviewed General: Alert Eyes: Fundoscopic exam not able to visualize optic disks CV: Heart RRR, no murmur, no carotid bruit Lungs: Clear to auscultation bilaterally, no rhonchi or rales Neuro: - Mental: . Oriented x person/place/date . concentration appears normal . speech fluency/comprehension normal . memory appears normal . fund of knowledge appear intact - Cranial Nerves: . II: PERRL, VFFTC . III/IV/: EOMI, no nystagmus, normal smooth pursuits, no Ptosis . V: facial sensation intact to LT . VII: face symmetric to eye closure and smile . VIII: hearing intact to conversation . IX/X: uvula raises symmetrically . XI: SCM 5/5 B/L strength . XII: tongue protrudes midline w/nl strength - Motor: . Tone: normal tone in all 4 extremity . 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 No evidence for dissection. 2. Multilevel degenerative disk and degenerative joint disease of the cervical spine, most severe at C4-C5, C5-C6, and C6-C7. Evidence of atherosclerotic change with calcified briggs in the intracranial portions of both internal carotid arteries with approximately 60% stenosis. There is also approximately 50% stenosis in the distal vertebral artery. No evidence for acute thrombus. - Assessment: 1. Right sided weakness and speech disturbance on 04/28/18, improved after TPA: Concern for stroke, will evaluate with brain MRI and stroke evaluation. - 2. Significant athersclerotic disease on head/neck CTA on 04/28/18 with up to 50% stenosis of carotids: Will get brain MRI looking for any symptomatic carotid lesions (acute stroke). If none found then will recommend outpatient referral to Dr. Karel Farias to monitor carotid stenosis. Other vessel stenosis best addressed with maximal medical management and possible outpatient surveillance by stroke expert (neurology will consider at outpatient f/u visit). - 3. CAD - 4. Prior stroke in September 2017: Similar symptoms to 04/28/18 of speech disturbance and right sided weakness that improved after TPA. He reported no sequelae after this event. - 5. Chronic back pain on tramadol: managed by [facility] - 6. Balance issues: Likely from underlying medical conditions and advanced age. PT will evalaute. - 7. HTN/HLD - Plan: - Get head CT 24 hours after TPA, if no bleed seen then OK to resume plavix 75 mg qd - Blood pressure goal < 180/110 x 48 hours then < 140/90 - LDL goal < 70 (129), recommend beginning statin - H1AC goal < 7.0 - Brain MRI wo - TTE - 24 hour telemetry - PT/OT/Speech to determine rehab needs Objective: Vital Signs Temp Pulse Resp BP Pulse Ox 36.7 C 65 15 97/46 L 93 04/29/18 04:30 04/29/18 10:30 04/29/18 10:30 04/29/18 10:30 04/29/18 10:30 Laboratory Results 04/29/18 05:30 04/29/18 05:30 04/28/18 04/29/18 04/30/18 05:59 05:59 05:59 Intake Total 2406 Output Total 350 350 Balance 2056 -350 PT 13.1 SEC (12.0-15.0) 04/28/18 15:50 INR 0.97 (0.83-1.16) 04/28/18 15:50 Allergies/Adverse Reactions: No Known Allergies Allergy (Verified 04/29/18 07:14)
--- NOTE | 2018-04-29 11:16 | CPEKG ---
Test Reason : OPEN Blood Pressure : / mmHG Vent. Rate : 072 BPM Atrial Rate : 072 BPM P-R Int : 207 ms QRS Dur : 106 ms QT Int : 430 ms P-R-T Axes : 035 -83 012 degrees QTc Int : 471 ms Sinus rhythm Inferior infarct, old Confirmed by Jr Gibbons ([id number]) on 04/29/2018 11:15:22 AM Referred By: Confirmed By:Jr Gibbons
--- NOTE | 2018-04-29 17:32 | HOSPPROG ---
Hospitalist Progress Note Assessment/Plan: #Concern for acute CVA (prior CVA September 2017) -symptoms resolved after t-pA -carotid stenosis; MRI pending to eval if correlated lesions. Will need to be monitored outpt -repeat CTH negative for hemorrhage; resume Plavix -statin -BP <180 for 48hrs, then 140 -PT/OT/Speech -no shunt on echo #Mildly enlarge aorta: 4.2cm. Annual U/S surveillance #CAD: h/o CABG-6V and stents. Statin #HTN: BP at goal. Restart gradually after 48hr if SBP>140 #HLD: statin #DM 2: Glargine, SSI #Chronic back pain: home meds #Diet: cardiac #DVT ppx: SCDs Inpatient admission for MRI, rehab Subjective: right-sided weakness resolved Objective: Vital Signs Temp Pulse Resp BP Pulse Ox 36.6 C 70 10 L 125/51 H 92 04/29/18 12:30 04/29/18 15:30 04/29/18 15:30 04/29/18 15:30 04/29/18 15:30 Laboratory Results 04/29/18 05:30 04/29/18 05:30 04/28/18 04/29/18 04/30/18 05:59 05:59 05:59 Intake Total 2406 Output Total 350 850 Balance 2056 -850 PT 13.1 SEC (12.0-15.0) 04/28/18 15:50 INR 0.97 (0.83-1.16) 04/28/18 15:50 - Time Spent With Patient Time Spent with Patient: greater than 35 minutes Time Spent with Patient: Greater than 35 minutes spent on this patients care, greater than 50% of time spent counseling, educating, and coordinating care regarding the above mentioned plan. - Physical Exam Constitutional: no apparent distress Eyes: PERRL Ears, Nose, Mouth, Throat: moist mucous membranes Cardiovascular: regular rate and rhythym Respiratory: no respiratory distress Gastrointestinal: normoactive bowel sounds Genitourinary: no bladder fullness Skin: warm Musculoskeletal: full muscle strength Neurologic: AAOx3, sensation intact bilaterally, CN II-XII Intact, No facial droop Psychiatric: interacting appropriately ICD10 Worksheet Patient Problems: Problems Problem Status Onset Acute ischemic stroke Acute
--- NOTE | 2018-04-29 17:46 | GCON ---
PULMONARY/CRITICAL CARE CONSULTATION DATE OF CONSULTATION: 04/29/2018 REFERRING PHYSICIAN: Justus Hernadez MD REASON FOR REFERRAL: Evaluation and management of CVA, anemia, and hyperglycemia. HISTORY: The patient is a 77-year-old male with a history of coronary artery disease status post mul tiple stenting and a CABG, as well as a CVA in September which was treated with tPA. He was admitted yest erday after presenting with right upper and lower extremity weakness and slurred speech. He was seen by ER doctor in [facility], who felt that tPA was indicated. This was given and the patient developed a headache. The tPA was held. A stat head CT was done and showed no changes, so tPA was resumed. His weakness and speech difficulties resolved. He has apparently had a couple of falls rec ently. He attributes this to some difficulty with balance. PAST MEDICAL HISTORY: 1. Coronary artery disease. 2. Type 2 diabetes. 3. Hypertension. 4. Hyperlipidemia. 5. AAA. 6. Chronic back pain. MEDICATIONS: Include tramadol, clopidogrel, lisinopril, insulin, isosorbide mononitrate, tizanidine, tamsulosin, gabapentin, trazodone, mirtazapine, and escitalopram. ALLERGIES: None. SOCIAL HISTORY: The patient has never smoked. Alcohol use: None. He recently moved here from [facility]. FAMILY HISTORY: Positive for coronary artery disease. REVIEW OF SYSTEMS: A 10-point review of systems adds nothing to the history of present illness. PHYSICAL EXAMINATION: GENERAL: The patient is awake and alert, in no acute distress. VITAL SIGNS: Blood pressure is 125/51 with a heart rate of 70. He is afebrile. Oxygen saturations are 92% on ro om air. HEENT: Normocephalic and atraumatic. No icterus. NECK: No adenopathy. Trachea is midlin e. CHEST: Clear to auscultation. CARDIAC: Regular rate and rhythm without murmur. ABDOMEN: Soft , nontender. Bowel sounds are present. EXTREMITIES: No clubbing, cyanosis, or edema. NEURO: The patient is awake and alert. He has no gross motor or sensory deficits. LABORATORY: Sodium is 136. Glucose is 170, and has been in the high 100s to low 200s during hospita lization. Hemoglobin is 9.5, down from 14.6 at admission. Urinalysis is unremarkable. A chest x-ra y shows nothing acute. Images reviewed by me. A CT scan of the head shows no intracranial hemorrhag e. ASSESSMENT: 1. Acute cerebrovascular accident. 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 His symptoms have comple tely resolved after receiving tPA. 2. History of coronary artery disease. 3. Back pain. 4. Anemia. The patient has developed anemia during this hospitalization, but has no apparent blood loss. Dilution or lab error could contribute. 5. Diabetes. The patient's blood sugars have been elevated during the hospitalization. RECOMMENDATIONS: 1. Continued ICU monitoring status post tPA. 2. Follow hemoglobin. 3. Check blood sugars throughout the day and use sliding scale insulin, as well as Lantus to control blood sugars. /[id number]/MODL
[2018-04-29] MEDS: CLOPIDOGREL BISULFATE 75 MG TAB PO SCH (17:59)
[2018-04-29] MEDS ORDERED: traZODone 100 MG TAB PO SCH (21:00)
[2018-04-29] MEDS ORDERED: GABAPENTIN 100 MG CAP PO SCH (21:00)
[2018-04-29] MEDS ORDERED: INSULIN GLARGINE 100 UNITS/ML UNIT SC SCH ×2 (21:00)
[2018-04-29] MEDS ORDERED: MIRTAZAPINE 15 MG TAB PO SCH (21:00)
[2018-04-30] MEDS: TAMSULOSIN HCL 0.4 MG CAP PO SCH (07:58)
[2018-04-30] MEDS: INSULIN LISPRO 100 UNIT/ML SC SCH (07:58)
[2018-04-30] MEDS: CLOPIDOGREL BISULFATE 75 MG TAB PO SCH (07:58)
[2018-04-30] MEDS: ATORVASTATIN CALCIUM 40 MG TAB PO SCH (07:58)
[2018-04-30] MEDS: PANTOPRAZOLE SODIUM 40 MG TAB PO SCH (07:59)
[2018-04-30] MEDS: ESCITALOPRAM OXALATE 10 MG TAB PO SCH (07:59)
[2018-04-30 11:29] VITALS: BP 126/76
--- NOTE | 2018-04-30 12:14 | NEUROPROG ---
Assessment: [id number] - Neurology Consult: - CC: F/U for right sided weakness - Narrative Summary: Pt with prior CAD (stents, coronary bypass) and prior stroke in September 2017 was brought to [facility] ER with right sided weakness and speech problems. Pt was given TPA and his symptoms improved. He reported that his prior stroke in September 2017 had similar symptoms that improved with TPA w/o residual problems. He has chronic back pain and is followed by [facility]. He also has been noting worsening balance with falls recently. Head CT showed no acute changes. CTA head/neck showed multiple areas of atherosclerotic stenosis up to 50% in the carotids. Pt was supposed to be on Plavix but noted he had been off it for a few weeks. I initially saw the patient on 04/29/18. His neurologic exam was normal. - HPI: F/U 04/30/18. Head CT showed no bleed. Brain MRI showed no stroke. Pt has no further weakness. It is unclear if he had a stroke that was resolved with TPA or he had recurrence of his old stroke symptoms. Regardless, symptoms have resolved. I will plan on adding aspirin 81 mg qd to his plavix 75 mg qd for increased stroke prevention and outpatient f/u with neurology 1-6 weeks after hospital discharge. He did report his back pain doctor wanted neurology to evaluate that complaint. He said he had previous unremarkable imaging of his back for back pain. I will further address this complaint at his outpatient visit. - PMHx: CAD, DM2, HTN, HLD, AAA, chronic back pain, coronary bypass surgery, cardiac stent, CVA - SHx: no tobacco FHx: CAD, [place] - ROS: Pt denied acute fever, total vision loss, active severe chest pain, respiratory failure, total body severe rash, total bowel/bladder incontinence, psychosis, active seizures, or active bleeding - Labs: 04/29/18- LDL 129H - Rads: 04/28/18- Head CT wo: no acute bleed or changes, mod atrophy, mod white matter disease likely from CMVD 04/28/18- Head/neck CTA: There is extensive dense calcified atherosclerotic plaque throughout the carotids and vertebral arteries with 50% or less of stenosis as described above. No evidence for dissection. 2. Multilevel degenerative disk and degenerative joint disease of the cervical spine, most severe at C4-C5, C5-C6, and C6-C7. Evidence of atherosclerotic change with calcified briggs in the intracranial portions of both internal carotid arteries with approximately 60% stenosis. There is also approximately 50% stenosis in the distal vertebral artery. No evidence for acute thrombus. 04/29/18- TTE: no cardioembolic source seen 04/29/18- Head CT: no acute bleed 04/29/18- Brain MRI wo: Moderate periventricular white matter disease; no features of acute cortical ischemia identified - Assessment: 1. Right sided weakness and speech disturbance on 04/28/18, improved after TPA: Brain MRI showed no stroke. It is unclear if he had a stroke that was resolved with TPA or he had recurrence of his old stroke symptoms (prior stroke September 2017 with R sided weakness and speech disturbance). Regardless, symptoms have resolved. I will plan on adding aspirin 81 mg qd to his plavix 75 mg qd for increased stroke prevention and outpatient f/u with neurology 1-6 weeks after hospital discharge. Given that large stroke seems unlikely I do not think he requires prolonged cardiac monitoring at this time. - 2. Significant athersclerotic disease on head/neck CTA on 04/28/18 with up to 50% stenosis of carotids: Recommend outpatient referral to Dr. Karel Farias to monitor asymptomatic carotid stenosis. Other vessel stenosis best addressed with maximal medical management and possible outpatient surveillance by stroke expert (neurology will consider at outpatient f/u visit). - 3. CAD - 4. Prior stroke in September 2017: Similar symptoms to 04/28/18 of speech disturbance and right sided weakness that improved after TPA. He reported no sequelae after this event. - 5. Chronic back pain on tramadol: managed by [facility]. He did report his back pain doctor wanted neurology to evaluate that complaint. He said he had previous unremarkable imaging of his back for back pain. I will further address this complaint at his outpatient visit. - 6. HTN/HLD - Plan: - resume plavix 75 mg qd for stroke prevention - add aspirin 81 mg qd for stroke prevention (stroke possibly occurred on plavix on 04/28/18) - Blood pressure goal < 140/90 - LDL goal < 70 (129), recommend beginning statin or adjusting statin if he is already on it - H1AC goal < 7.0 - PT/OT/Speech to determine rehab needs - F/U in neurology clinic 1-6 weeks after hospital discharge - No further neurologic w/u needed, neurology will sign off - I will offer routine referral to Dr. Karel Farias at otpt f/u to evaluate asymptomatic carotid stenosis - 35 min spent with patient, majority of time spent counseling on symptoms and treatment plan Objective: Vital Signs Temp Pulse Resp BP Pulse Ox 36.8 C 78 14 126/76 H 95 04/30/18 11:28 04/30/18 11:28 04/30/18 11:28 04/30/18 11:28 04/30/18 11:28 Laboratory Results 04/29/18 05:30 04/29/18 05:30 04/29/18 04/30/18 05/01/18 05:59 05:59 05:59 Intake Total 2406 650 720 Output Total 350 1450 450 Balance 2056 -800 270 PT 13.1 SEC (12.0-15.0) 04/28/18 15:50 INR 0.97 (0.83-1.16) 04/28/18 15:50 Allergies/Adverse Reactions: No Known Allergies Allergy (Verified 04/29/18 07:14)
== END 2018-04-30 11:46 | disposition home or self-care (01) | DRG 63 ==
LOC: EDUNIT# → F2N 18:25
PROVIDERS: ADMIT Internal Medicine; ATTEND Internal Medicine
DX: I63.233 Cerebral infarction due to unspecified occlusion or stenosis of bilateral carotid arteries (principal); I10 Essential (primary) hypertension; I71.4 Abdominal aortic aneurysm, without rupture; I67.2 Cerebral atherosclerosis; E11.9 Type 2 diabetes mellitus without complications; I25.10 Atherosclerotic heart disease of native coronary artery without angina pectoris; I25.2 Old myocardial infarction; E78.5 Hyperlipidemia, unspecified; G89.29 Other chronic pain; D64.9 Anemia, unspecified; Z95.1 Presence of aortocoronary bypass graft; Z95.5 Presence of coronary angioplasty implant and graft; Z86.73 Personal history of transient ischemic attack (TIA), and cerebral infarction without residual deficits
CPT/HCPCS: 82435-PO; 82565-PO; 82947-PO; 84132-PO; 84295-PO; 84520-PO; 85014-ER; 92523-GN; 96365; 97116-GP; 97162-GP; J1815; J2997

== ENCOUNTER 2018-05-13 12:15 | Observation (INO) | payer OTHER ==
[2018-05-13] MEDS ORDERED: NS 500 ML IV ONE (13:01)
--- NOTE | 2018-05-13 13:14 | EDPHY ---
H & P Time Seen by Provider: 05/13/18 12:59 HPI/ROS: HPI Fainted at home. 78-year-old male by ambulance with his daughter. This patient was at home about an hour prior to arrival. He was sitting at his breakfast table in the dining room. He was having some coffee and working on his computer. His daughter heard a snoring sound in came into the room and found him slumped back in his chair unconscious. He was snoring loudly and he looked pale. She was unable to arouse him by loud verbal and physical stimulus initially. She called 911. She was instructed to lie him on the floor. She did this. EMS arrived and he started coming around. He then quickly regained consciousness. He currently has no complaints. He denies any associated chest pain, palpitations, headache, shortness of breath, loss of sensation or weakness in his extremities with this event. He states that this time he feels fine. ROS: Constitutional: No fever, no chills. As above. Eyes: No discharge. No changes in vision. ENT: No sore throat. No nasal congestion or rhinorrhea. Respiratory: No cough. No shortness of breath. Cardiac: No chest pain, no palpitations. Gastrointestinal: No abdominal pain, no vomiting, no diarrhea. Genitourinary: No hematuria. No dysuria or increased frequency with urination. Musculoskeletal: No back pain. No neck pain. No myalgias or arthralgias. Skin: No rashes. Neurological: No headache. No focal weakness or altered sensation. Past medical history: Coronary artery disease with 8 stents, mi, CABG, right hip repair, diabetes, TIA April of this year with no residual deficits. Social history: Here with his daughter. Lives at home with his daughter. Nonsmoker. No alcohol. Family is planning on taking a trip and getting on a plane in a few hours. Physical Exam: General Appearance: Alert, no distress. This patient is responding to questions appropriately and in full sentences. This patient appears well- hydrated and well-nourished. Eyes: Pupils equal and round and reactive to light at 3-2 mm bilaterally, no pallor or injection. No lid edema, erythema or injection. ENT, Mouth: Mucous membranes are moist. The pharyngeal tissues are unremarkable. No edema or swelling. No asymmetry suggestive of abscess. No erythema or exudates. No tongue lacerations or abrasions. Respiratory: There are no retractions, lungs are clear to auscultation with good air movement bilaterally. Cardiovascular: Regular rate and rhythm. Heart sounds are distant. No murmur appreciated. Gastrointestinal: Abdomen is soft and nontender, no masses, bowel sounds normal. No focal tenderness at McBurney's point. No Vargas sign. Neurological: Motor sensory function is grossly intact. Cranial nerves are normal. Gait is normal. Skin: Warm and dry, no rashes. Musculoskeletal: Neck is supple and nontender. Extremities are symmetrical. All joints range without pain or impingement. Psychiatric: No agitation. No depression. Database: EKG: EKG time is 1:22 p.m.; EKG shows a narrow complex normal sinus rhythm with a ventricular rate of 52. The AR, QRS, QT intervals are within normal limits. There are no ST-T wave changes indicative of ischemic or injury pattern. No evidence of right heart strain. No evidence of WPW, Brugada syndrome, hypertrophic cardiomyopathy. Interpreted by me. Imaging: Procedures: Emergency department course: Triage vital signs reviewed. Blood pressure is a little low at 104/51. Triage vital signs are otherwise normal. He is afebrile. An IV was placed. He was placed on a monitor tech. EKG obtained. He will be started on IV normal saline with 250 cc to 500 cc to be given over the next hour. 2:25 p.m., the patient was re-evaluated, resting comfortably at this time. Repeat neurologic Assessment is nonfocal. His vitals remained normal. I discussed the results of his emergency department workup. His daughter had to go and child care supervisor his granddaughter. I explained that we would admit him to telemetry for observation and further evaluation by the hospitalist service overnight. He is in agreement. Hospitalist paged. 2:30 p.m., case discussed with hospitalist in detail. Patient accepted to the hospitalist service. Patient admitted in stable condition. Differential Diagnosis: The differential diagnosis on this patient includes but is not limited to vasovagal syncopal event, arrhythmia. Seizure, CVA, subarachnoid hemorrhage, pulmonary embolism, acute coronary syndrome unlikely. This represents a partial list of diagnoses considered. These considerations are based on history , physical exam, past history, reassessment and diagnostic testing. Smoking Status: Never smoked Constitutional: Initial Vital Signs Temperature (C) 36.3 C 05/13/18 12:31 Heart Rate 66 05/13/18 12:31 Respiratory Rate 16 05/13/18 12:31 Blood Pressure 104/51 L 05/13/18 12:31 O2 Sat (%) 94 05/13/18 12:31 O2 Delivery Mode Room Air Allergies/Adverse Reactions: No Known Allergies Allergy (Verified 04/29/18 07:14) Home Medications: Medication Instructions Recorded Clopidogrel Bisulfate [Plavix (*)] 75 mg PO DAILY 04/29/17 Insulin Glargine [Lantus] 25 unit SC DAILY #0 04/29/17 Lisinopril [Zestril 40 mg (*)] 40 mg PO DAILY 04/29/17 Pantoprazole Sodium [Protonix 40mg 40 mg PO DAILY #0 04/29/17 (*)] traMADol [Ultram 50 mg (*)] 50 mg PO Q4 PRN 04/29/17 Escitalopram Oxalate [Lexapro 10 10 mg PO DAILY 04/28/18 MG] Gabapentin [Neurontin 100 MG (*)] 100 mg PO DAILY 04/28/18 Mirtazapine 15 mg PO HS 04/28/18 Tamsulosin HCl [Flomax 0.4 MG (*)] 0.4 mg PO DAILY 04/28/18 tiZANidine HCL [Zanaflex] 4 mg PO TID PRN 04/28/18 traZODone [traZODONE 100MG (*)] 100 mg PO HS 04/28/18 Atorvastatin Calcium [Lipitor 40 40 mg PO DAILY #30 tab 04/30/18 mg (*)] Calcium Carbonate [Tums 500MG (*)] 500 - 1,000 mg PO Q4 PRN tab.chew 04/30/18 Aspirin [Aspirin 81mg (*)] 81 mg PO DAILY 05/13/18 Isosorbide Mononitrate [Isosorbide 60 mg PO DAILY 05/13/18 Mononitrate ER] Medical Decision Making - Data Points Laboratory Results: Laboratory Results 05/13/18 13:01 05/13/18 13:01 05/13/18 05/13/18 05/13/18 13:16 13:01 13:01 WBC 6.66 10^3/uL 10^3/uL (3.80-9.50) RBC 4.16 10^6/uL L 10^6/uL (4.40-6.38) Hgb 10.7 g/dL L g/dL (13.7-17.5) Hct 34.5 % L % (40.0-51.0) MCV 82.9 fL fL (81.5-99.8) MCH 25.7 pg L pg (27.9-34.1) MCHC 31.0 g/dL L g/dL (32.4-36.7) RDW 14.5 % % (11.5-15.2) Plt Count 275 10^3/uL 10^3/uL (150-400) MPV 11.2 fL fL (8.7-11.7) Neut % (Auto) 70.4 % % (39.3-74.2) Lymph % (Auto) 18.3 % % (15.0-45.0) Grayson % (Auto) 7.4 % % (4.5-13.0) Eos % (Auto) 2.7 % % (0.6-7.6) Baso % (Auto) 0.9 % % (0.3-1.7) Nucleat RBC Rel Count 0.0 % % (0.0-0.2) Absolute Neuts (auto) 4.69 10^3/uL 10^3/uL (1.70-6.50) Absolute Lymphs (auto) 1.22 10^3/uL 10^3/uL (1.00-3.00) Absolute Monos (auto) 0.49 10^3/uL 10^3/uL (0.30-0.80) Absolute Eos (auto) 0.18 10^3/uL 10^3/uL (0.03-0.40) Absolute Basos (auto) 0.06 10^3/uL 10^3/uL (0.02-0.10) Absolute Nucleated RBC 0.00 10^3/uL 10^3/uL (0-0.01) Immature Gran % 0.3 % % (0.0-1.1) Immature Gran # 0.02 10^3/uL 10^3/uL (0.00-0.10) Sodium 136 mEq/L mEq/L (135-145) Potassium 4.3 mEq/L mEq/L (3.5-5.2) Chloride 102 mEq/L mEq/L (97-110) Carbon Dioxide 25 mEq/l mEq/l (22-31) Anion Gap 9 mEq/L mEq/L (6-14) BUN 21 mg/dL mg/dL (7-23) Creatinine 1.1 mg/dL mg/dL (0.7-1.3) Estimated GFR > 60 Glucose 164 mg/dL H mg/dL (70-100) Calcium 9.1 mg/dL mg/dL (8.5-10.4) POC Troponin I 0.02 ng/mL ng/mL (0.00-0.08) Medications Given: Discontinued Medications Sodium Chloride (Ns) 500 mls @ 1,000 mls/hr IV EDNOW ONE PRN Reason: Protocol Stop: 05/13/18 13:30 Last Admin: 05/13/18 13:50 Dose: 500 mls Point of Care Test Results: Chemistry 05/13/18 13:16 POC Troponin I 0.02 ng/mL ng/mL (0.00-0.08) Departure - Departure Disposition: [facility] Inpatient Acute Clinical Impression: Syncope Referrals: Jefferson Haile MD [Primary Care Provider] - As per Instructions
[2018-05-13 13:39] LABS: PLATELET COUNT 275 10^3/uL (150-400)
[2018-05-13] MEDS ORDERED: ONDANSETRON 4 MG/2 ML VIAL IVP PRN (14:59)
[2018-05-13] MEDS ORDERED: ONDANSETRON DISINTEGRATING 4 MG TAB PO PRN (14:59)
[2018-05-13] MEDS ORDERED: ACETAMINOPHEN 325 MG TAB PO PRN (14:59)
--- NOTE | 2018-05-13 15:41 | PDGENHP ---
History and Physical - Chief Complaint syncope - History of Present Illness Patient is a 77-year-old male with past medical history of coronary artery disease habits post CABG as well as multiple CVAs with the last 04/29/2018 who presented after passing out in a chair today. He said that he was sitting in a chair working on his computer drinking coffee and the next thing he knows he was on the floor with EMS standing above in. Most of the history was obtained by his daughter who says that she walked in the room and noticed her father slumped back on a chair. She says she tried to wake him but he was unresponsive so she called EMS who recommended that she lie him down on the floor. She suspects that he was passed out for approximately 15 min. Patient denied having any prodromal symptoms, denied any shortness of breath racing heart prior to his episode. He has been in good health. He was planning to fly to [place] ago today and was researching his trip on the computer. He says he has been eating and drinking well. He has had no fevers or chills denied any symptoms of any recent illness. His previous stroke presented right-sided weakness and most of the symptoms had already resolved. At this point he says he feels completely fine and back to baseline. History Information - Allergies/Home Medication List Allergies/Adverse Reactions: No Known Allergies Allergy (Verified 04/29/18 07:14) Home Medications: Clopidogrel Bisulfate [Plavix (*)] 75 mg PO DAILY 04/29/17 [Last Taken 05/13/18] Insulin Glargine [Lantus] 25 unit SC DAILY #0 04/29/17 [Last Taken 05/13/18] Lisinopril [Zestril 40 mg (*)] 40 mg PO DAILY 04/29/17 [Last Taken 05/13/18] Pantoprazole Sodium [Protonix 40mg (*)] 40 mg PO DAILY #0 04/29/17 [Last Taken 05/13/18] traMADol [Ultram 50 mg (*)] 50 mg PO Q4 PRN 04/29/17 [Last Taken Unknown] Escitalopram Oxalate [Lexapro 10 MG] 10 mg PO DAILY 04/28/18 [Last Taken ] Gabapentin [Neurontin 100 MG (*)] 100 mg PO DAILY 04/28/18 [Last Taken 05/13/18] Mirtazapine 15 mg PO HS 04/28/18 [Last Taken 05/12/18] Tamsulosin HCl [Flomax 0.4 MG (*)] 0.4 mg PO DAILY 04/28/18 [Last Taken 05/13/18 ] tiZANidine HCL [Zanaflex] 4 mg PO TID PRN 04/28/18 [Last Taken Unknown] traZODone [traZODONE 100MG (*)] 100 mg PO HS 04/28/18 [Last Taken 05/12/18] Aspirin [Aspirin 81mg (*)] 81 mg PO DAILY 05/13/18 [Last Taken 05/13/18] Isosorbide Mononitrate [Isosorbide Mononitrate ER] 60 mg PO DAILY 05/13/18 [ Last Taken 05/13/18] I have personally reviewed and updated: family history, medical history, social history, surgical history - Past Medical History coronary artery disease, diabetes type 2, hypertension, hyperlipidemia Additional medical history: recently diagnosed AAA. chronic back pain - Surgical History Reports: coronary bypass surgery, coronary stent - Family History Positive for: CAD (father, brother and mother of MIs) - Social History Smoking Status: Never smoked Additional social history: recently moved here from [place], accompanied by his daughter Review of Systems Review of Systems: ROS: 10pt was reviewed & negative except for what was stated in HPI & below Physical Exam Physical Exam: Temp Pulse Resp BP Pulse Ox 36.3 C 59 L 18 165/79 H 97 05/13/18 12:31 05/13/18 15:34 05/13/18 15:34 05/13/18 15:34 05/13/18 15:34 Constitutional: no apparent distress, appears nourished, not in pain Eyes: PERRL, anicteric sclera, EOMI Ears, Nose, Mouth, Throat: moist mucous membranes, hearing normal, ears appear normal, no oral mucosal ulcers Cardiovascular: regular rate and rhythym, no murmur, rub, or gallop, No edema Respiratory: no respiratory distress, no rales or rhonchi, clear to auscultation Gastrointestinal: normoactive bowel sounds, soft, non-tender abdomen, no palpable masses Genitourinary: no bladder fullness, no bladder tenderness Skin: warm, normal color, no rashes or abrasions, no fluctuance, no induration, No mottled Musculoskeletal: full muscle strength, no muscle tenderness, normal joint ROM, no joint effusions Psychiatric: interacting appropriately, not anxious, not encephalopathic, thought process linear Lymph, Heme, Immunologic: no cervical LAD, no supraclavicular LAD Lab Data & Imaging Review 05/13/18 13:01 05/13/18 13:01 WBC 6.66 10^3/uL (3.80-9.50) 05/13/18 13:01 RBC 4.16 10^6/uL (4.40-6.38) L 05/13/18 13:01 Hgb 10.7 g/dL (13.7-17.5) L 05/13/18 13:01 Hct 34.5 % (40.0-51.0) L 05/13/18 13:01 MCV 82.9 fL (81.5-99.8) 05/13/18 13:01 MCH 25.7 pg (27.9-34.1) L 05/13/18 13:01 MCHC 31.0 g/dL (32.4-36.7) L 05/13/18 13:01 RDW 14.5 % (11.5-15.2) 05/13/18 13:01 Plt Count 275 10^3/uL (150-400) 05/13/18 13:01 MPV 11.2 fL (8.7-11.7) 05/13/18 13:01 Neut % (Auto) 70.4 % (39.3-74.2) 05/13/18 13:01 Lymph % (Auto) 18.3 % (15.0-45.0) 05/13/18 13:01 Zavala % (Auto) 7.4 % (4.5-13.0) 05/13/18 13:01 Eos % (Auto) 2.7 % (0.6-7.6) 05/13/18 13:01 Baso % (Auto) 0.9 % (0.3-1.7) 05/13/18 13:01 Nucleat RBC Rel Count 0.0 % (0.0-0.2) 05/13/18 13:01 Absolute Neuts (auto) 4.69 10^3/uL (1.70-6.50) 05/13/18 13:01 Absolute Lymphs (auto) 1.22 10^3/uL (1.00-3.00) 05/13/18 13:01 Absolute Monos (auto) 0.49 10^3/uL (0.30-0.80) 05/13/18 13:01 Absolute Eos (auto) 0.18 10^3/uL (0.03-0.40) 05/13/18 13:01 Absolute Basos (auto) 0.06 10^3/uL (0.02-0.10) 05/13/18 13:01 Absolute Nucleated RBC 0.00 10^3/uL (0-0.01) 05/13/18 13:01 Immature Gran % 0.3 % (0.0-1.1) 05/13/18 13:01 Immature Gran # 0.02 10^3/uL (0.00-0.10) 05/13/18 13:01 Sodium 136 mEq/L (135-145) 05/13/18 13:01 Potassium 4.3 mEq/L (3.5-5.2) 05/13/18 13:01 Chloride 102 mEq/L (97-110) 05/13/18 13:01 Carbon Dioxide 25 mEq/l (22-31) 05/13/18 13:01 Anion Gap 9 mEq/L (6-14) 05/13/18 13:01 BUN 21 mg/dL (7-23) 05/13/18 13:01 Creatinine 1.1 mg/dL (0.7-1.3) 05/13/18 13:01 Estimated GFR > 60 05/13/18 13:01 Glucose 164 mg/dL (70-100) H 05/13/18 13:01 Calcium 9.1 mg/dL (8.5-10.4) 05/13/18 13:01 POC Troponin I 0.02 ng/mL (0.00-0.08) 05/13/18 13:16 Assessment & Plan Assessment: Syncope (Acute)-I discussed the case with the ER physician. Patient was just here for acute CVA on 04/29/18. Patient is new to me and I have reviewed his chart. EKG from today shows no acute ischemia but does show sinus bradycardia with rates in the 50s. He had an echocardiogram with bubble study that was normal about 2 weeks ago along with brain MRI, CTA, CT. History sounds less likely vasovagal orthostatic hypotension given that he was sitting. He was not postictal and had no loss of bowel or bladder. He had a CTA neck during previous admission and with over 50% bilateral stenosis with substantial carotid and vessel disease which may be the cause of this episode or contributory. Syncope would be an unusual manifestation of carotid stenosis but given bilateral disease it is possible. He was supposed to follow up with Dr. Farias from surgery for evaluation and monitoring of his carotid disease. -Admit PCU -monitor on telemetry -if further bradycardia, consult cardiology -check orthostatics -consult Surgery for evalution of his carotid disease as possible cause of this episode -consider neurology consult, he was supposed to follow up after discharge but may be prudent to have them evaluate him while he is here. -hold medications that may cause orthostasis or syncope CAD- status post 6 vessel CABG. on asa, plavix, rebecca inhibitor, imdur, Lipitor, Hx oc CVA IDDM- takes 30 units of lantus HS. restart wtih dose reduction, and cover with SSI BPH-continue flomax Depression- trazodone, remeron, lexapro, hold trazodone. Prophylaxis- scd, lovenox Fluids- IV saline lytes- WNL Nutrition- regular diet Cor- DNR Dispo-obs for syncope
[2018-05-13] MEDS ORDERED: D50W 25 GM/50 ML SYR IVP PRN (17:31)
[2018-05-13] MEDS: INSULIN LISPRO 100 UNIT/ML SC SCH (17:46)
[2018-05-13] MEDS ORDERED: NS 1,000 ML IV SCH (18:00)
--- NOTE | 2018-05-13 19:41 | CPEKG ---
Test Reason : OPEN Blood Pressure : / mmHG Vent. Rate : 052 BPM Atrial Rate : 052 BPM P-R Int : 177 ms QRS Dur : 099 ms QT Int : 460 ms P-R-T Axes : -13 -69 018 degrees QTc Int : 428 ms Sinus rhythm Inferior infarct, old Confirmed by Tommy Maurer ([id number]) on 05/13/2018 7:41:16 PM Referred By: Confirmed By:Tommy Maurer
[2018-05-13] MEDS ORDERED: INSULIN GLARGINE 100 UNITS/ML UNIT SC SCH (21:00)
[2018-05-13] MEDS ORDERED: MIRTAZAPINE 15 MG TAB PO SCH (21:45)
[2018-05-14 04:40] LABS: PLATELET COUNT 256 10^3/uL (150-400)
[2018-05-14] MEDS ORDERED: TAMSULOSIN HCL 0.4 MG CAP PO SCH (09:00)
[2018-05-14] MEDS ORDERED: ENOXAPARIN 40 MG/0.4 ML SYR SC SCH (09:00)
[2018-05-14] MEDS ORDERED: ISOSORBIDE MONONITRATE 30 MG TAB.SR PO SCH (09:00)
[2018-05-14] MEDS ORDERED: PANTOPRAZOLE SODIUM 40 MG TAB PO SCH (09:00)
[2018-05-14] MEDS ORDERED: CLOPIDOGREL BISULFATE 75 MG TAB PO SCH (09:00)
[2018-05-14] MEDS ORDERED: ATORVASTATIN CALCIUM 40 MG TAB PO SCH (09:00)
[2018-05-14] MEDS ORDERED: LISINOPRIL 40 MG TAB PO SCH (09:00)
[2018-05-14] MEDS ORDERED: ESCITALOPRAM OXALATE 10 MG TAB PO SCH (09:00)
[2018-05-14] MEDS ORDERED: ASPIRIN 81 MG CHEWABLE TAB PO SCH (09:00)
[2018-05-14] MEDS: INSULIN LISPRO 100 UNIT/ML SC SCH ×2 (10:02→13:53)
[2018-05-14] MEDS ORDERED: MAGNESIUM SULF 2 GM/WATER 50 ML IV ONE (11:05)
--- NOTE | 2018-05-14 14:02 | HOSPPROG ---
Hospitalist Progress Note Assessment/Plan: #Syncope while sitting in a chair -Etiology is unclear. Does not have any e/o of Orthostatic hypotension. Likely not vasovagal. Cardiac? -Recent w/u negative #?Bradycardia ?question contributing to syncope #Hx of CABG, CAD #Atherosclerosis, -CTA neck c/w less than 50% stenosis -will need f/u with Dr. Farias -Do not think that this led to the syncopal episode #Recent CVA #LELE, needs outpatient w/u #Hypomagnesemia Plan: Cards will see him today. He sees Dr. Soto in op setting. He already has a loop recorder which was interrogated and no events recorded Negative orthostatics will have PT/OT eval Dispo: d/c today vs tomorrow, pending further w/u and clinical course Subjective: feels fine. no cp or sob. Objective: Vital Signs Temp Pulse Resp BP Pulse Ox 36.4 C 82 17 173/83 H 93 05/14/18 11:24 05/14/18 11:24 05/14/18 11:24 05/14/18 11:24 05/14/18 11:24 Laboratory Results 05/14/18 03:40 05/14/18 03:40 05/13/18 05/14/18 05/15/18 05:59 05:59 05:59 Intake Total 1500 Balance 1500 - Physical Exam Constitutional: no apparent distress Eyes: PERRL, EOMI Ears, Nose, Mouth, Throat: moist mucous membranes Cardiovascular: regular rate and rhythym Respiratory: no respiratory distress, no rales or rhonchi, clear to auscultation Gastrointestinal: normoactive bowel sounds Skin: warm Neurologic: AAOx3 Psychiatric: interacting appropriately, not anxious, not encephalopathic ICD10 Worksheet Patient Problems: Problems Problem Status Onset Syncope Acute Acute ischemic stroke Acute
--- NOTE | 2018-05-14 14:56 | ASMTCMCOM ---
CM Note CM Note Notes: Pts case discussed in tx rounds. Pt is a 78 y/o man admitted for syncope. Pt lives half of his time in [place]. Pts family is working w/ [employer] [facility] [employer] to find pt a intermediate placement in 3-4 different states. Pt has children in these different states. Pts childrens are concerned that pt is having increased heart problems. No therapies ordered at this time. CM spoke to LAVINIA Guallpa. Pt is steady on his feet. Pt will most likely d/c independent when medically stable. CM available for changes. Plan: Independent Date Signed: 05/14/2018 02:55 PM Electronically Signed By:MARTIN Sweet
--- NOTE | 2018-05-14 15:08 | PDDCSUM ---
Discharge Summary Discharge Summary: 78 yo male admitted with syncope of unclear etiology. It occurred while sitting on his chair. Post prandial. No prodrome. No post ictal period. Has a loop recorder already in place and this did not show events. He has had negative orthostatics. He was seen by Dr. Soto and recommendation are for op anemia w/u and f/u with neuro. no interventions were made here. DDX: #Syncope while sitting in a chair -Etiology is unclear. Does not have any e/o of Orthostatic hypotension. Likely not vasovagal. No e/o that this was due to cardiac etiology -?autonomic insufficiency -extensive w/u has been negative -driving/swimming precautions given #Hx of CABG, CAD #Atherosclerosis, -CTA neck c/w less than 50% stenosis -will need f/u with Dr. Farias -Do not think that this led to the syncopal episode #Recent CVA #LELE, needs outpatient w/u #Hypomagnesemia: replaced Exam: see progress note today meds: see med rec F/u: with PCP next week. With cardiology in 2-4 weeks, with neurology in 2-4 weeks, with GI in 2-4 weeks total time spent on d/c is 35 mins
[2018-05-14 15:14] VITALS: BP 154/65
--- NOTE | 2018-05-14 15:43 | GCON ---
CARDIOLOGY CONSULTATION DATE OF CONSULTATION: 05/14/2018 CONSULTING PHYSICIAN: Dr. Werner. INDICATION FOR CONSULTATION: Syncope. HISTORY OF PRESENT ILLNESS: The patient is a pleasant 78-year-old gentleman who recently relocated t [facility] from [place] who has a known past medical history of coronary artery disease, status pos t CABG with a history of PCI to the saphenous vein graft to the obtuse marginal branch in July 2015, hypertension, hyperlipidemia, diabetes. He has a history of CVA in September 2017 requiring tPA and rece nt CVA while living here in [place] on April 28, 2018, also treated with tPA. He also has a known a scending aortic aneurysm measuring 4.6 cm on CAT scan of the chest done on April 14, 2018. The patient presents today with new onset of syncope. He states that he was in his usual state of he alth planning on leaving for [place] for the weekend today. He states he got up in the morning and he felt perfectly well. He has had no changes in his medications. He has been compliant with his m edications. He states he had breakfast and a cup of coffee. He states he packed his bag for heading for the airport. He sat down at his dining room table to work on his computer, and the next thing h e recalls is being awoken by paramedics while lying on the floor of his dining room. He states that his daughter came downstairs and noted that he was slumped leaning back against the ch air where he was working on the dining room table. She had called 911. setup operator recommended elizabeth t she work to lower him safely to the to the ground, which she was able to do successfully. Upon awakening, the patient stated he felt fatigued and generally felt poorly. However, he states th at by the time he arrived to [facility] he was back to his usual state of health. The patient has had 2 other similar episodes of non prodromal syncope that occurred last year while l iving in [place]. He was seen by cardiologists back in [place]. He underwent extensive workup at that time including EP study that was negative for any inducible arrhythmias. He underwent a [place] [place] implantable loop recorder. I had seen the patient in the office on May 05, 2018. His devi e was interrogated at that time, which demonstrated sinus rhythm with frequent PVCs. Implantable loop recorder interrogation today demonstrates sinus rhythm and no arrhythmias associated with syncope. He did have 2 episodes of bradycardia, but not related to the timing of his syncope. Currently, at the time of my exam, he is resting comfortably without complaint. He denies chest pain, chest pressure, shortness of breath or dyspnea. No complaints of PND, orthopne a, or lower extremity edema. He denies any complaints of palpitations, dizziness, or lightheadedness . He has no complaints of abdominal pain, back pain, flank pain. No complaints of fevers, chills, s weats, nausea, or vomiting. He has been compliant with his medications. PAST MEDICAL HISTORY: 1. Coronary artery disease, status post CABG. 2. History of PCI to saphenous vein graft to OM1 in July 2015. 3. Hypertension. 4. Hyperlipidemia. 5. History of CVA in September 2017, treated with tPA. 6. History of CVA April 28, 2018, treated with tPA. 7. Diabetes. 8. Known history of syncope. 9. Bilateral carotid artery disease. 10. Diabetic neuropathy. 11. Ascending aortic aneurysm measuring 4.6 cm from CAT scan March 2018. MEDICATIONS ON ADMISSION: Include 1. Aspirin 81 mg daily. 2. Escitalopram 10 mg daily. 3. Gabapentin 100 mg daily. 4. Isosorbide mononitrate 60 mg daily. 5. Lipitor 40 mg daily. 6. Lisinopril 40 mg daily. 7. Mirtazapine 15 mg q.h.s. 8. Protonix 40 mg b.i.d. 9. Plavix 75 mg daily. 10. Tamsulosin 0.4 mg daily. 11. Tizanidine 4 mg q.6 hours p.r.n. 12. Tramadol 50 mg one tablet p.o. q.4 hours p.r.n. 13. Trazodone 100 mg p.o. q.h.s. 14. Lantus 25 units subcu once daily. ALLERGIES TO MEDICATIONS: None. SOCIAL HISTORY: He is . He lives with his . He recently relocated from [place]. FAMILY HISTORY: Noncontributory. PHYSICAL EXAMINATION: VITAL SIGNS: Blood pressure 143/57. Heart rate of 90. Respiratory rate of 1 7. Oxygen saturation 93% on room air. Temperature 36.4. GENERAL: He is awake, alert, oriented, ap propriate. No apparent distress. NECK: There is no evidence of JVP or carotid bruits. LUNGS: Eric ar to auscultation bilaterally. CARDIAC: S1, S2. Regular rate and rhythm. He does have a 2/6 syst olic murmur audible at the apex. Findings are consistent with mitral regurgitation. EXTREMITIES: H e has no evidence of cyanosis, clubbing, or edema. DATA: White blood cell count 6.6, hemoglobin of 10.4, hematocrit 33.6, platelet count 256. Sodium 139, potassium 4.0, chloride 108, bicarb 24, BUN 19, creatinine 0.9, glucose 89, calcium 8.8, magnesium 1.4, total protein 5.9, albumin 3.3. ECG at time of presentation demonstrates normal sinus rhythm, sinus bradycardia at 52 beats per minut e with Q-waves in leads III and aVF consistent with old inferior infarction. QTc corrected of 428 mi lliseconds. Nonspecific T-wave flattening in leads V5 and V6. IMPRESSION: 1. Syncope. 2. Coronary artery disease, history of coronary artery bypass graft and percutaneous coronary interv ention to the vein graft in 2016. 3. Cerebrovascular accident x2 requiring tPA in September 2017 and April 2018. 4. Ascending aortic aneurysm measuring 4.6 cm from CAT scan March 2018. 5. Hypertension. 6. Hyperlipidemia. 7. Bilateral carotid artery disease. 8. Diabetes. The patient is a pleasant 78-year-old gentleman with extensive past medical history with episodes of syncope beginning in June of 2017. Extensive workup with cardiologists in [place] was unremarkab le including negative EP study. Implantable loop recorder was placed last year after negative EP lillian dy. Loop recorder interrogation today demonstrates no underlying arrhythmic etiology to explain his syncope. During a recent CVA earlier this month, he did undergo bilateral carotid Doppler with exten sive calcific atherosclerotic plaque of 50% or less. Recent echocardiogram demonstrates trileaflet aortic valve with mild calcific stenosis and normal lef t ventricular function. With unremarkable findings on implantable loop recorder interrogation today, I do not think his synco pe is cardiac in origin. I do note his hemoglobin has dropped over the course of the last year from 14 down to 10. Would esperanza mmend the followin. I think patient is stable for discharge home on current cardiac medications. 2. Recommend consultation with Neurology regarding syncope. 3. Recommend consultation with GI regarding anemia. The patient will follow up with me in the office. /[id number]/MODL
== END 2018-05-14 17:00 | disposition home or self-care (01) ==
LOC: EDUNIT# → F2W 15:50
PROVIDERS: ADMIT Internal Medicine; ATTEND Internal Medicine
DX: R55 Syncope and collapse (principal); E86.9 Volume depletion, unspecified; I25.10 Atherosclerotic heart disease of native coronary artery without angina pectoris; E11.9 Type 2 diabetes mellitus without complications; I10 Essential (primary) hypertension; I71.2 Thoracic aortic aneurysm, without rupture; I77.9 Disorder of arteries and arterioles, unspecified; I25.2 Old myocardial infarction; Z95.5 Presence of coronary angioplasty implant and graft; Z95.1 Presence of aortocoronary bypass graft
CPT/HCPCS: 93005; 96372; 96374; 99285; G0378; J1650; J1815; J3475; 84484-ER

== ENCOUNTER 2018-09-13 14:42 | Inpatient (IN) | payer OTHER ==
--- NOTE | 2018-09-13 14:45 | EDPHY ---
H & P Time Seen by Provider: 09/13/18 14:44 - Medical/Surgical History Hx Asthma: No Hx Chronic Respiratory Disease: No Hx Diabetes: Yes Hx Cardiac Disease: Yes Hx Renal Disease: No Hx Cirrhosis: No Hx Alcoholism: No Hx HIV/AIDS: No Hx Splenectomy or Spleen Trauma: No Other PMH: CAD, 8 cardiac stents, CO, CABG, R hip repair, DM 2, CVA 10/12, 05/15 - Social History Smoking Status: Never smoked Constitutional: Initial Vital Signs Temperature (C) 36.4 C 09/13/18 14:47 Heart Rate 92 09/13/18 14:47 Respiratory Rate 18 09/13/18 14:47 Blood Pressure 141/71 H 09/13/18 14:47 O2 Sat (%) 93 09/13/18 14:47 O2 Delivery Mode Room Air Allergies/Adverse Reactions: No Known Allergies Allergy (Verified 04/29/18 07:14) Home Medications: Medication Instructions Recorded Clopidogrel Bisulfate [Plavix (*)] 75 mg PO DAILY 04/29/17 Insulin Glargine [Lantus] 25 unit SC DAILY #0 04/29/17 Lisinopril [Zestril 40 mg (*)] 40 mg PO DAILY 04/29/17 Pantoprazole Sodium [Protonix 40mg 40 mg PO DAILY #0 04/29/17 (*)] traMADol [Ultram 50 mg (*)] 50 mg PO Q4 PRN 04/29/17 Escitalopram Oxalate [Lexapro 10 10 mg PO DAILY 04/28/18 MG] Gabapentin [Neurontin 100 MG (*)] 100 mg PO DAILY 04/28/18 Mirtazapine 15 mg PO HS 04/28/18 tiZANidine HCL [Zanaflex] 4 mg PO TID PRN 04/28/18 traZODone [traZODONE 100MG (*)] 100 mg PO HS 04/28/18 Atorvastatin Calcium [Lipitor 40 40 mg PO DAILY #30 tab 04/30/18 mg (*)] Calcium Carbonate [Tums 500MG (*)] 500 - 1,000 mg PO Q4 PRN tab.chew 04/30/18 Isosorbide Mononitrate [Isosorbide 60 mg PO DAILY 05/13/18 Mononitrate ER] Eliquis 09/13/18 Medical Decision Making - Diagnostics Imaging Results: Imaging Impressions Cervical Spine CT 09/13/18 14:50 Impression: 1. No acute intracranial process or cervical spine fracture/subluxation. 2. Degenerative changes of the cervical spine. Age-appropriate generalized cerebral volume loss with sequelae of chronic microvascular ischemic disease. 3. Groundglass opacity in the right lung apex. A pulmonary hemorrhage cannot be excluded. Findings and recommendations discussed with Speedy Taylor MD at 1551 hour, . Head CT 09/13/18 14:50 Impression: 1. No acute intracranial process or cervical spine fracture/subluxation. 2. Degenerative changes of the cervical spine. Age-appropriate generalized cerebral volume loss with sequelae of chronic microvascular ischemic disease. 3. Groundglass opacity in the right lung apex. A pulmonary hemorrhage cannot be excluded. Findings and recommendations discussed with Speedy Taylor MD at 1551 hour, . Imaging: Discussed imaging studies w/ private equity analyst Radiologist, I viewed and interpreted images myself ED Course/Re-evaluation: CHIEF COMPLAINT: Syncope HISTORY OF PRESENT ILLNESS: 78-year-old gentleman who has had multiple syncopal episodes. This patient was urinating about 8:00 a.m. This morning. He stood up from the toilet and passed out immediately. He then woke up on the ground was unable to get up. He laid there until approximately 2:00 p.m.. He was able to squirm far enough to get to a phone to call his daughter who called EMS. He was transported here approximately 45 min later. Patient is complaining of hitting his head in the back left occiput area. He is also complaining of cervical pain he did arrive in a cervical collar with spinal precautions. He also complains of lumbar pain and has significant pain when lifting his right and left leg off the bed. He has some known peripheral neuropathy therefore strength testing is quite difficult as he has poor feeling at baseline and often does not ambulate well. He also states that he is in and out of atrial fibrillation. His daughter is at bedside and confirms the above. He also endorses the fact that he takes both Eliquis and Plavix. REVIEW OF SYSTEMS: A comprehensive 10 system review of systems is otherwise negative aside from elements mentioned in the history of present illness and medical decision making. PHYSICAL EXAM: HR, BP, O2 Sat, RR. Temp noted General Appearance: Alert, well hydrated, appropriate, and non-toxic appearing. Head: Atraumatic without scalp tenderness or obvious injury Eyes: Pupils equal, round, reactive to light and accommodation, EOMI, no trauma , no injection. Ears: Clear bilaterally, no perforation, normal landmarks Nose: Atraumatic, no rhinorrhea, clear. Throat: There is no erythema or exudates, no lesions, normal tonsils, mucus membranes moist. Neck: Supple, 2+ carotid upstroke, nontender, no lymphadenopathy. Respiratory: No retractions, no distress, no wheezes, and no accessory muscle use. Lungs are clear to auscultation bilaterally. Cardiovascular: Regular rate and rhythm, no murmurs, rubs, or gallops. Bilateral carotid, radial, dorsalis pedis, and posterior tibial pulses intact. Good capillary refill all extremities. Gastrointestinal: Abdomen is soft, nontender, non-distended, no masses, no rebound, no guarding, no peritoneal signs. Musculoskeletal: Normal active ROM of all extremities, atraumatic. Neurological: Alert, appropriate, and interactive. The patient has normal DTRs and non-focal cranial nerves, motor, sensory, and cerebellar exam. Skin: No rashes, good turgor, no nodules on palpation. Past medical history: Atrial fibrillation, anticoagulation, coronary artery bypass grafts multiple, fully anticoagulated Past surgical history: Numerous coronary artery bypass grafts Family history: Noncontributory Social history: , retired, lives alone, daughter lives nearby, denies tobacco, drug, alcohol abuse DIAGNOSTICS/PROCEDURES/CRITICAL CARE TIME: Head CT: No acute findings. C-spine CT: No acute findings. T-spine CT: Right-sided pulmonary contusion L-spine CT: No acute findings. Abdominopelvic CT: No acute findings. DIFFERENTIAL DIAGNOSIS: The differential diagnosis for the patient's trauma included but was not limited to intracranial injury, long bone and pelvic bone fractures, spinal injury, intra-abdominal injury, and intra-thoracic injury. MEDICAL DECISION MAKING: This patient has significant pain is in cervical and lumbar spine. He does have some thoracic pain but not as severe. He also states that he hit his head. He is fully anticoagulated. He is getting CT scans currently. He is awake and alert. His vital signs are normal. His daughter is at bedside. 1553: I spoke with Dr. Goncalves, radiologist, who reports that there are not acute findings on the head and c-spine CT. Other CT studies are pending. 1559: Patient is complaining of pain; 1mg IV Dilaudid administered. 1625: I spoke with Dr. Goncalves, who reports that the patient has a right-sided pulmonary contusion. His other CT imaging findings are normal. I will call trauma to consult on this patient. I will page the hospitalist to admit this patient for his syncope. 1627: Reassessed patient and discussed imaging and laboratory findings. I have also discussed plan for admission, which the patient and his daughter are comfortable with. 1639: I consulted with Dr. Rios, hospitalist, who accepts admission of this patient. 1654: I consulted with Dr. Eden, trauma surgeon, regarding this patient. He agrees to consult on this patient during his admission. - Data Points Laboratory Results: Laboratory Results 09/13/18 15:00 09/13/18 15:00 09/13/18 09/13/18 09/13/18 15:04 15:00 15:00 WBC RBC Hgb POC Hgb 12.6 gm/dL L gm/dL (13.7-17.5) Hct POC Hct 37 % L % (40-51) MCV MCH MCHC RDW Plt Count MPV Neut % (Auto) Lymph % (Auto) [place] % (Auto) Eos % (Auto) Baso % (Auto) Nucleat RBC Rel Count Absolute Neuts (auto) Absolute Lymphs (auto) Absolute Monos (auto) Absolute Eos (auto) Absolute Basos (auto) Absolute Nucleated RBC Immature Gran % Immature Gran # PT INR APTT POC Sodium 135 mEq/L mEq/L (135-145) Sodium 133 mEq/L L mEq/L (135-145) POC Potassium 4.9 mEq/L mEq/L (3.3-5.0) Potassium 4.9 mEq/L mEq/L (3.5-5.2) POC Chloride 101 mEq/L mEq/L (97-110) Chloride 100 mEq/L mEq/L (97-110) Carbon Dioxide 20 mEq/l L mEq/l (22-31) POC Total CO2 24 mEq/L mEq/L (22-31) Anion Gap 13 mEq/L mEq/L (6-14) POC BUN 37 mg/dL H mg/dL (7-23) BUN 35 mg/dL H mg/dL (7-23) Creatinine 1.2 mg/dL mg/dL (0.7-1.3) POC Creatinine 1.3 mg/dL mg/dL (0.7-1.3) Estimated GFR 59 Glucose 202 mg/dL H mg/dL (70-100) POC Glucose 208 mg/dL H mg/dL (70-100) Calcium 9.5 mg/dL mg/dL (8.5-10.4) Creatine Kinase 118 IU/L IU/L (0-224) POC Troponin I 0.00 ng/mL ng/mL (0.00-0.08) 09/13/18 09/13/18 15:00 15:00 WBC 18.47 10^3/uL H 10^3/uL (3.80-9.50) RBC 4.22 10^6/uL L 10^6/uL (4.40-6.38) Hgb 10.7 g/dL L g/dL (13.7-17.5) POC Hgb Hct 34.6 % L % (40.0-51.0) POC Hct MCV 82.0 fL fL (81.5-99.8) MCH 25.4 pg L pg (27.9-34.1) MCHC 30.9 g/dL L g/dL (32.4-36.7) RDW 15.1 % % (11.5-15.2) Plt Count 244 10^3/uL 10^3/uL (150-400) MPV 11.2 fL fL (8.7-11.7) Neut % (Auto) 89.6 % H % (39.3-74.2) Lymph % (Auto) 3.6 % L % (15.0-45.0) [place] % (Auto) 6.1 % % (4.5-13.0) Eos % (Auto) 0.1 % L % (0.6-7.6) Baso % (Auto) 0.2 % L % (0.3-1.7) Nucleat RBC Rel Count 0.0 % % (0.0-0.2) Absolute Neuts (auto) 16.54 10^3/uL H 10^3/uL (1.70-6.50) Absolute Lymphs (auto) 0.67 10^3/uL L 10^3/uL (1.00-3.00) Absolute Monos (auto) 1.13 10^3/uL H 10^3/uL (0.30-0.80) Absolute Eos (auto) 0.01 10^3/uL L 10^3/uL (0.03-0.40) Absolute Basos (auto) 0.04 10^3/uL 10^3/uL (0.02-0.10) Absolute Nucleated RBC 0.00 10^3/uL 10^3/uL (0-0.01) Immature Gran % 0.4 % % (0.0-1.1) Immature Gran # 0.08 10^3/uL 10^3/uL (0.00-0.10) PT 13.8 SEC SEC (12.0-15.0) INR 1.10 (0.83-1.16) APTT 32.5 SEC SEC (23.0-38.0) POC Sodium Sodium POC Potassium Potassium POC Chloride Chloride Carbon Dioxide POC Total CO2 Anion Gap POC BUN BUN Creatinine POC Creatinine Estimated GFR Glucose POC Glucose Calcium Creatine Kinase POC Troponin I Medications Given: Discontinued Medications Hydromorphone HCl (Dilaudid) 1 mg IVP EDNOW ONE Stop: 09/13/18 16:00 Last Admin: 09/13/18 16:49 Dose: 1 mg Sodium Chloride (Ns) 1,000 mls @ 0 mls/hr IV EDNOW ONE; Wide Open PRN Reason: Protocol Stop: 09/13/18 14:52 Last Admin: 09/13/18 15:17 Dose: 1,000 mls Point of Care Test Results: Chemistry 09/13/18 09/13/18 15:04 15:00 POC Sodium 135 mEq/L mEq/L (135-145) POC Potassium 4.9 mEq/L mEq/L (3.3-5.0) POC Chloride 101 mEq/L mEq/L (97-110) POC Total CO2 24 mEq/L mEq/L (22-31) POC BUN 37 mg/dL H mg/dL (7-23) POC Creatinine 1.3 mg/dL mg/dL (0.7-1.3) POC Glucose 208 mg/dL H mg/dL (70-100) POC Troponin I 0.00 ng/mL ng/mL (0.00-0.08) ISTAT H&H 09/13/18 15:04 POC Hgb 12.6 gm/dL L gm/dL (13.7-17.5) POC Hct 37 % L % (40-51) Departure - Departure Disposition: [facility] Inpatient Acute Clinical Impression: Pulmonary contusion Qualifiers: Encounter type: initial encounter Laterality: right Qualified Code(s): S27.321A - Contusion of lung, unilateral, initial encounter Syncope Qualifiers: Syncope type: unspecified Qualified Code(s): R55 - Syncope and collapse Condition: Fair
[2018-09-13] MEDS ORDERED: NS 1,000 ML IV ONE (14:51)
[2018-09-13 15:15] LABS: PLATELET COUNT 244 10^3/uL (150-400)
[2018-09-13 15:16] LABS: INR 1.1 (0.83-1.16); PROTIME(PATIENT) 13.8 SEC (12.0-15.0)
[2018-09-13] MEDS ORDERED: IOPAMIDOL (ISOVUE-300) 100 ML BTL ONE (15:22)
[2018-09-13 15:34] LABS: CREATINE KINASE 118 IU/L (0-224)
[2018-09-13] MEDS ORDERED: HYDROmorphONE/DILAUDID 2 MG/ML INJ IVP ONE (15:59)
[2018-09-13] MEDS ORDERED: D50W 25 GM/50 ML SYR IVP PRN (19:21)
--- NOTE | 2018-09-13 20:04 | PDGENHP ---
History and Physical - Chief Complaint Syncope - History of Present Illness 78 y/o male w/hx of coronary artery disease, carotid artery disease, HTN, hx of CVA x 2, implantable loop recorder, PAF and CABG x 6 stents presenting w/ syncope today. He reports urinary frequency and progressive dysuria for the last year and this morning was at the toilet urinating when he felt dizzy, lightheadedness, nauseous, and diffuse extremity weakness and had a syncopal episode that per the pt, lasted only a few seconds. When he came to, he was lying on his right side but unable to get up because of weakness. He laid there from 8:00am-2:00pm until he was able to scoot his body across the naresh to get to a phone to call his daughter. He denies cough, fever, chills , CP, palpitations, GARZA. He is being admitted for further work-up, treatment and monitoring. History Information - Allergies/Home Medication List Allergies/Adverse Reactions: No Known Allergies Allergy (Verified 04/29/18 07:14) Home Medications: Clopidogrel Bisulfate [Plavix (*)] 75 mg PO DAILY 04/29/17 [Last Taken 09/13/18] Lisinopril [Zestril 40 mg (*)] 40 mg PO DAILY 04/29/17 [Last Taken 09/13/18] Pantoprazole Sodium [Protonix 40mg (*)] 40 mg PO DAILY #0 04/29/17 [Last Taken 09/13/18] Gabapentin [Neurontin 100 MG (*)] 100 mg PO DAILY 04/28/18 [Last Taken 09/13/18] traZODone [traZODONE 100MG (*)] 100 mg PO HS 04/28/18 [Last Taken 09/12/18] Atorvastatin Calcium [Lipitor 40 mg (*)] 80 mg PO DAILY 09/13/18 [Last Taken ] Insulin Detemir [Levemir Flextouch] 50 unit SQ HS 09/13/18 [Last Taken 09/12/18] Rivaroxaban [Xarelto] 20 mg PO DAILY@1800 09/13/18 [Last Taken 09/12/18] I have personally reviewed and updated: family history, medical history, social history, surgical history - Past Medical History coronary artery disease, diabetes type 2, hypertension, hyperlipidemia Additional medical history: recently diagnosed AAA. chronic back pain - Surgical History Reports: coronary bypass surgery, coronary stent - Family History Positive for: CAD (father, brother and mother of MIs), myocardial infarction - Social History Smoking Status: Never smoked Alcohol Use: None Drug Use: None Additional social history: recently moved here from [place], accompanied by his daughter Review of Systems Review of Systems: ROS: 10pt was reviewed & negative except for what was stated in HPI & below Physical Exam Physical Exam: Lab data and imaging were reviewed. Case discussed w/admitting physician, Dr. Quang Rios. WBC: 18.47 H/H: 10.7/34.6 Plt count: 244 Na: 133 K: 4.9 Cl: 100 Co2: 20 BUN/Cr: 35/1.2 INR: 1.10 Troponin: 0.00 Head/cervical/chest/abdominal/thoracic/lumbar CT: Patchy ground glass opacities in the right lung, new since 2018.Given the hx of trauma, this probably represents pulmonary contusion/hemorrhage. No displaced fx is seen overlying the right lung. Equivocal probably chronic PE in a LLL segmental branch. Moderate hiatal hernia. Cystic 9 mm lesion in the pancreatic uncinate process. Severe atherosclerotic disease w/redemonstration of an AAA now measuring 4.3 x 4.2 cm decreased in size. Degenerative changes of the thoracic and lumbar spines w/severe stenosis at T12-L1. EKG: NSR, left axis deviation Temp Pulse Resp BP Pulse Ox 37.1 C 96 16 131/67 H 97 09/13/18 18:24 09/13/18 18:24 09/13/18 18:24 09/13/18 18:24 09/13/18 18:24 O2 (L/minute) 2 Constitutional: no apparent distress, obese Eyes: PERRL, anicteric sclera, EOMI Ears, Nose, Mouth, Throat: moist mucous membranes, hearing normal, ears appear normal, no oral mucosal ulcers Cardiovascular: systolic murmur, tachycardia Peripheral Pulses: 2+: dorsalis-pedis (R), dorsalis-pedis (L) Respiratory: reduced air movement (Bilateral lower lobes) Gastrointestinal: soft, non-tender abdomen, no palpable masses, other ( Hypoactive BS) Genitourinary: no bladder tenderness, other (Bladder fullness +) Skin: warm, normal color, no rashes or abrasions, no fluctuance, no induration, No mottled Musculoskeletal: generalized weakness (Diffuse extremity weakness. Gross motor strength BUE/BLE 3-4/5) Neurologic: AAOx3, sensation intact bilaterally, CN II-XII Intact Psychiatric: interacting appropriately, not anxious, not encephalopathic, thought process linear Lymph, Heme, Immunologic: no cervical LAD, no supraclavicular LAD Lab Data & Imaging Review 09/13/18 15:00 09/13/18 15:00 WBC 18.47 10^3/uL (3.80-9.50) H 09/13/18 15:00 RBC 4.22 10^6/uL (4.40-6.38) L 09/13/18 15:00 Hgb 10.7 g/dL (13.7-17.5) L 09/13/18 15:00 POC Hgb 12.6 gm/dL (13.7-17.5) L 09/13/18 15:04 Hct 34.6 % (40.0-51.0) L 09/13/18 15:00 POC Hct 37 % (40-51) L 09/13/18 15:04 MCV 82.0 fL (81.5-99.8) 09/13/18 15:00 MCH 25.4 pg (27.9-34.1) L 09/13/18 15:00 MCHC 30.9 g/dL (32.4-36.7) L 09/13/18 15:00 RDW 15.1 % (11.5-15.2) 09/13/18 15:00 Plt Count 244 10^3/uL (150-400) 09/13/18 15:00 MPV 11.2 fL (8.7-11.7) 09/13/18 15:00 Neut % (Auto) 89.6 % (39.3-74.2) H 09/13/18 15:00 Lymph % (Auto) 3.6 % (15.0-45.0) L 09/13/18 15:00 [place] % (Auto) 6.1 % (4.5-13.0) 09/13/18 15:00 Eos % (Auto) 0.1 % (0.6-7.6) L 09/13/18 15:00 Baso % (Auto) 0.2 % (0.3-1.7) L 09/13/18 15:00 Nucleat RBC Rel Count 0.0 % (0.0-0.2) 09/13/18 15:00 Absolute Neuts (auto) 16.54 10^3/uL (1.70-6.50) H 09/13/18 15:00 Absolute Lymphs (auto) 0.67 10^3/uL (1.00-3.00) L 09/13/18 15:00 Absolute Monos (auto) 1.13 10^3/uL (0.30-0.80) H 09/13/18 15:00 Absolute Eos (auto) 0.01 10^3/uL (0.03-0.40) L 09/13/18 15:00 Absolute Basos (auto) 0.04 10^3/uL (0.02-0.10) 09/13/18 15:00 Absolute Nucleated RBC 0.00 10^3/uL (0-0.01) 09/13/18 15:00 Immature Gran % 0.4 % (0.0-1.1) 09/13/18 15:00 Immature Gran # 0.08 10^3/uL (0.00-0.10) 09/13/18 15:00 PT 13.8 SEC (12.0-15.0) 09/13/18 15:00 INR 1.10 (0.83-1.16) 09/13/18 15:00 APTT 32.5 SEC (23.0-38.0) 09/13/18 15:00 POC Sodium 135 mEq/L (135-145) 09/13/18 15:04 Sodium 133 mEq/L (135-145) L 09/13/18 15:00 POC Potassium 4.9 mEq/L (3.3-5.0) 09/13/18 15:04 Potassium 4.9 mEq/L (3.5-5.2) 09/13/18 15:00 POC Chloride 101 mEq/L (97-110) 09/13/18 15:04 Chloride 100 mEq/L (97-110) 09/13/18 15:00 Carbon Dioxide 20 mEq/l (22-31) L 09/13/18 15:00 POC Total CO2 24 mEq/L (22-31) 09/13/18 15:04 Anion Gap 13 mEq/L (6-14) 09/13/18 15:00 POC BUN 37 mg/dL (7-23) H 09/13/18 15:04 BUN 35 mg/dL (7-23) H 09/13/18 15:00 Creatinine 1.2 mg/dL (0.7-1.3) 09/13/18 15:00 POC Creatinine 1.3 mg/dL (0.7-1.3) 09/13/18 15:04 Estimated GFR 59 09/13/18 15:00 Glucose 202 mg/dL (70-100) H 09/13/18 15:00 POC Glucose 197 mg/dL (70-100) H 09/13/18 18:29 Calcium 9.5 mg/dL (8.5-10.4) 09/13/18 15:00 Creatine Kinase 118 IU/L (0-224) 09/13/18 15:00 POC Troponin I 0.00 ng/mL (0.00-0.08) 09/13/18 15:00 Assessment & Plan Assessment: 78 y/o male w/extensive cardiac hx including CABG s/p 6 stents, CVA x 2, CAD, carotid artery disease, possible sleep apnea and DM presenting s/p syncopal event today, subsequently diffuse extremity weakness and unable to call for assistance until hours lying on the floor. His vital signs are the following: BP 131/67, HR 96, Resp 16, Temp 37.1c, Oxygen 97% 2L NC. #Syncope (Acute) -He was recently admitted here for possible CVA vs TIA in April 2018 -ECHO last performed Apr 2018 and was unremarkable -Unclear of etiology -Orthostatic vitals one time in AM -Cont tele/PCU monitoring -Cards consulted; spoke to Dr. Torres and cards will evaluate pt tomorrow; they will interrogate loop recorder -Holding yang waller #Urinary retention -Per pt, he reports chronic urinary frequency and discomfort now w/dysuria -Unable to urinate while here, RN bladder scanned > 1L -Insert indwelling and collect UA -Possible micturition syncope? -Consider urology consult while in house #Leukocytosis -Elevated (18.47), afebrile, tachycardic -Unclear of etiology -UA pending -Blood cx pending #Pulmonary contusion (Acute) -Imaging revealing possible right sided pulm contusion/hemorrhage/or aspiration PNA. -Trauma team consulted; Dr. Patrick to evaluate pt sometime during his stay in house -Procalcitonin pending -Low threshold to empirically treat for aspiration PNA consider his risk factors , imaging. Denies cough, fevers. -Cardiac medications including plavix and xarelto resuming tomorrow -Noted on imaging was a cystic lesion in the pancreatic uncinate process - recommended for him to f/u on this in one year. #Generalized weakness -PT/OT to evaluate and treat -Cards consult for possible etiology #Hyponatremia -Encourage PO intake, appears euvolemic -CBC/BMP in AM Diet: Cardiac VTE ppx: Xarelto, Plavix, SCDs Code: DNR Dispo: Admit to inpatient
--- NOTE | 2018-09-13 20:34 | CPEKG ---
Test Reason : OPEN Blood Pressure : / mmHG Vent. Rate : 084 BPM Atrial Rate : 084 BPM P-R Int : 186 ms QRS Dur : 102 ms QT Int : 368 ms P-R-T Axes : 032 -81 042 degrees QTc Int : 436 ms Sinus rhythm Inferior infarct, old Confirmed by Speedy Taylor ([id number]) on 09/13/2018 8:34:03 PM Referred By: Speedy Taylor Confirmed By:Speedy Taylor
--- NOTE | 2018-09-13 21:40 | GCON ---
[f rep st] CONSULTATION This 78-year-old gentleman presents to the hospital with syncope, found after 6 hours by his daughter . The patient was brought in by emergency services, possible syncopal event while after using the to ilet. The patient struck his right side on a bathtub. The patient does not describe loss of conscio usness, but he was weak both arms and legs, not being able to stand up or walk. According to his bandar ghter, he has been weak for several months. The patient's CT scan of the head, neck, chest, abdomen and pelvis reconstructions demonstrates possible pulmonary contusion on the right side, although the pattern is more suggestive of infiltrative process given the fact that he has no rib fractures or sof t tissue injuries. PAST MEDICAL HISTORY: Significant for coronary artery disease, diabetes, hypertension, hyperlipidemi a, abdominal aortic aneurysm, chronic back pain. PAST SURGICAL HISTORY: Includes 6 vessel coronary artery bypass and coronary stents. FAMILY HISTORY: Noncontributory. REVIEW OF SYSTEMS: Significant for weakness of upper and lower extremities without apparent cause. PHYSICAL EXAMINATION: GENERAL: The patient is alert, oriented to person, place, and time. He is lyi ng flat. HEENT: Sclerae anicteric. Oropharynx slightly dry. LUNGS: Are clear bilaterally. HEART: Post s regular heart tones, S1 and S2. ABDOMEN: Soft, nontender, nondistended. He has minor tenderness in his right flank, but there are no bruises. EXTREMITIES: Without edema. He has diminished periphe ral pulses, well-healed scars from previous heart surgery and leg vein harvesting. LABORATORY DATA: His CT scans were personally reviewed on PACS. Discussed with Radiology and with Shawn Rios and Dr. Speedy Taylor. No acute injuries are noted except for possible pulmonary contusion . White blood cell count of 18,000 with a left shift, hemoglobin of 10, hematocrit of 34, platelet c ount of 244. His PT is 1.1, PTT of 13.8, sodium 133, potassium 4.9, chloride 100, bicarb 20, his BUN is 35, creatinine is 1.2. His creatine kinase is 118, glucose is 202. His troponin was 0. The pat ient also should be noted to be on dual antiplatelet therapy, Xarelto and Plavix. IMPRESSION: Overall, that of syncope, possible pulmonary contusion versus pneumonia, elevated white count, history of coronary artery disease and diabetes. PLAN: To admit to Medicine. Follow expectantly. Possibly treat for pneumonia. Discussed with Dr. Rios. The trauma team will follow peripherally. /[id number]/MODL
[2018-09-13] MEDS: INSULIN GLARGINE 100 UNITS/ML UNIT SC SCH (21:42)
[2018-09-13] MEDS: INSULIN REGULAR HUMAN 100 UNIT/ML UNIT SC SCH (21:43)
[2018-09-14] MEDS: ATORVASTATIN CALCIUM 40 MG TAB PO SCH (08:44)
[2018-09-14] MEDS: TAMSULOSIN HCL 0.4 MG CAP PO SCH (08:44)
[2018-09-14] MEDS: CLOPIDOGREL BISULFATE 75 MG TAB PO SCH (08:44)
[2018-09-14] MEDS: LISINOPRIL 40 MG TAB PO SCH (08:45)
[2018-09-14] MEDS: GABAPENTIN 100 MG CAP PO SCH (08:45)
[2018-09-14] MEDS: PANTOPRAZOLE SODIUM 40 MG TAB PO SCH (08:45)
[2018-09-14] MEDS: INSULIN REGULAR HUMAN 100 UNIT/ML UNIT SC SCH ×4 (10:07→21:48)
--- NOTE | 2018-09-14 10:43 | PDMN ---
Medical Necessity Medical necessity: Pt meets IP criteria per TRACTOR MECHANIC APPRENTICE & MCG M-340; est los >2 mn s/p syncopal episode, etiology unclear (possibly micturition); w/diffuse extremity weakness & possible pulmonary contusion vs pneumonia; admit for further workup/ monitoring, Cardiology/Trauma consults & therapies; extensive cardiac hx on AC; per H&P & order 09/13/18
[2018-09-14] MEDS ORDERED: OPIUM/BELLADONNA ALKALO SUPP PR PRN (11:00)
--- NOTE | 2018-09-14 13:33 | HOSPPROG ---
Hospitalist Progress Note Assessment/Plan: * Syncope -probably vasovagal due to micturition -recent ECHO negative -interrogate loop recorder * MALHOTRA - likely to BPH - 1500cc urine retained -Flomax started -DC home with argueta - outpatient urology follow-up -B&O suppositories for spasms * Pulmonary contusion due to trauma -doubt pneumonia - hold antibiotics * Pancreatic cyst -follow-up imaging 1 year * CAD/CABG/stent -Plavix * DM II * h/o stroke with bilateral 60% ICA stenosis -plavix, statin * Iron deficiency anemia -start PO iron -outpatient gi eval - heme check stool * Chronic PE -on Xarelto - need to clarify indication Subjective: dizzy with walking Objective: Vital Signs Temp Pulse Resp BP Pulse Ox 36.4 C 85 19 121/51 H 95 09/14/18 10:54 09/14/18 10:54 09/14/18 10:54 09/14/18 10:54 09/14/18 10:54 Laboratory Results 09/14/18 04:40 09/14/18 04:40 09/13/18 09/14/18 09/15/18 05:59 05:59 05:59 Output Total 1050 Balance -1050 PT 13.8 SEC (12.0-15.0) 09/13/18 15:00 INR 1.10 (0.83-1.16) 09/13/18 15:[address] - c/w pulmonary contusion EKG viewed, my personal interpretation is - no acute ischemic change - Physical Exam Constitutional: no apparent distress, appears nourished, not in pain Cardiovascular: regular rate and rhythym, no murmur, rub, or gallop Respiratory: no respiratory distress, no rales or rhonchi, clear to auscultation Gastrointestinal: normoactive bowel sounds, soft, non-tender abdomen, no palpable masses Skin: no rashes or abrasions, no fluctuance, no induration Neurologic: AAOx3, sensation intact bilaterally Psychiatric: interacting appropriately, not anxious, not encephalopathic, thought process linear ICD10 Worksheet Patient Problems: Problems Problem Status Onset Acute ischemic stroke Acute Syncope Acute Pulmonary contusion Acute
--- NOTE | 2018-09-14 13:50 | ASMTCMCOM ---
CM Note CM Note Notes: 09/14/2018 Case Management Note Pt admitted for syncope, right pulmonary contusion. Met w/pt to discuss d/c needs. Therapies recommending home care. Pt in agreement. Provided list of home care agencies. Pt chose [facility]. Faxed referral via [employer]. Notified on phone. Pt lives 2 blocks away from his local daughter Audra [phone]. Pt visited Audra in October from [place] and has extended his stay. Plans to move to [place] permanently are uncertain. Daughter Renita Kowalski lives in [place] and can be reached at [phone]. Pt is not driving currently as car is in [place]. Pt uses [facility] for transport. Audra provides groceries. Pt PCP is Dr. Haile. Case Management d/c poc: HC RN PT OT Case Management to follow. Date Signed: 09/14/2018 01:49 PM Electronically Signed By:Caridad Almeida RN
--- NOTE | 2018-09-14 17:51 | TRAUMAPNT ---
Trauma Tertiary Progress Note Assessment/Plan: Fall, question of pulmonary contusion but NO rib pain. Breathing improved. Denies trauma to anywhere on his body Tertiary survey complete without additional findings S: Doing well and felt like he could go home Objective: Vital Signs Temp Pulse Resp BP Pulse Ox 36.6 C 79 20 144/66 H 97 09/14/18 15:29 09/14/18 15:29 09/14/18 15:29 09/14/18 15:29 09/14/18 15:29 Laboratory Results 09/14/18 04:40 09/14/18 04:40 09/13/18 09/14/18 09/15/18 05:59 05:59 05:59 Output Total 1050 1150 Balance -1050 -1150 PT 13.8 SEC (12.0-15.0) 09/13/18 15:00 INR 1.10 (0.83-1.16) 09/13/18 15:00 Physical Exam - Physical Exam General Appearance: WD/WN, alert, no apparent distress EENT: PERRL/EOMI, normal ENT inspection, No scleral icterus (R), No scleral icterus (L), No hearing deficit Neck: non-tender, full range of motion Respiratory: chest non-tender, lungs clear, normal breath sounds Cardiac/Chest: regular rate, rhythm Abdomen: normal bowel sounds, non-tender, soft Skin: normal color Extremities: normal range of motion, non-tender, normal inspection
--- NOTE | 2018-09-14 17:53 | GCON ---
[f rep st] CONSULTATION VICTOR HEART CONSULTATION DATE OF CONSULTATION: 09/14/2018 REASON FOR CONSULTATION: We were asked by the hospitalists to further evaluate and comment on recent syncopal episode on 09/22/2018. HISTORY OF PRESENT ILLNESS: This is a 78-year-old male, who presented to the emergency room after having a syncopal event at home. He reports that he used the toilet and stood up, and dropped to the floor, passing out briefly. Upon gaining consciousness, he was unable to use his legs or his arms to stand up. He reports that he laid on the floor from 8:00 a.m. until 2:00 p.m. After on the floor for approximately 4 hours, he was able to use his arms to scoot to his bedroom, where he was able to call his daughter, who immediately came to his assistance. He was taken to the emergency room for further evaluation, where he did have a CT scan of the head, neck, chest, abdomen, and pelvis, finding possible pulmonary contusion on the right side, and no head abnormalities, and no rib fractures. He was admitted to the hospital for further observation. Of note, he did have a CVA April 28, 2018. On April, he had a syncopal event. He was seen by Dr. Farias at that time, considering a possible need for left CEA despite carotid stenosis of 50% to 60% . He has noted weakness over the past few months in general. At time of my visit, he is sitting in the chair, talkative, and reports that he has been able to walk to the bathroom with use of a walker. He has been seen by EP, and had an electrophysiology study with an implantable loop recorder placed. In April , the loop recorder did identify paroxysms of atrial fibrillation. He was started on Xarelto 20 mg daily at that time. He is a CHADS VASc 7. We will further evaluate the loop recorder for recent arrhythmias. At this time , he is doing well. PAST MEDICAL HISTORY: 1. Coronary artery disease. 2. Diabetes. 3. Hypertension. 4. Hyperlipidemia. 5. Abdominal aortic aneurysm. 6. Chronic back pain. 7. CVA. 8. Supraventricular tachycardia. 9. Vascular dementia. PAST SURGICAL HISTORY: 1. Coronary artery bypass, 6 vessel surgery. 2. Coronary stents. FAMILY HISTORY: Noncontributory. REVIEW OF SYSTEMS: Significant for weakness of upper and lower extremities. All others negative. PHYSICAL EXAM: CONSTITUTIONAL: Oriented to person, place, and time. HEENT: Sclerae anicteric. Mucous membranes moist. LUNGS: Clear to auscultation. No wheezes, rales, or rhonchi. CARDIAC: Regular rhythm with no rubs or gallops. Murmur 2/6. ABDOMEN: Soft and nontender. EXTREMITIES: No edema. Pulses are palpable bilaterally. ALLERGIES: He has no known allergies. MEDICATIONS: 1. Plavix 75 mg daily. 2. Zestril 40 mg daily. 3. Protonix 40 mg daily. 4. Neurontin 100 mg daily. 5. Trazodone 100 mg at bedtime. 6. Lipitor 80 mg daily. 7. Insulin Detemir 50 units subcutaneous at bedtime. 8. Xarelto 20 mg daily. SOCIAL HISTORY: Denies smoking, alcohol use, illicit drug use. Recently moved to [place] in December, from [place]. His daughter lives near him. LABORATORY DATA: Initial lab work showed a WBC of 18.47, hemoglobin 10.7, hematocrit 34.6. Potassium 4.9, sodium 133, creatinine 1.2. INR 1.1. Troponin 0.00. EKG: Normal sinus rhythm. PLAN: 1. Due to his recurring episodes of syncope that may be related to a transient ischemic attack/cerebrovascular accident, would recommend rechecking a carotid ultrasound bilaterally. 2. Mild murmur was appreciated. Will have him get an echocardiogram to further evaluate his cardiac status. 3. Consider consult by Dr. Karel Farias related to his carotid status. 4. Consider consultation by Dr. Sandoval with Neurology as he has been following him closely. 5. Further recommendations pending results of testing. 6. Continue Xarelto 20 mg daily due to his known paroxysmal atrial fibrillation. He is a CHADS VASc 7. /[id number]/MODL MTDD
[2018-09-14] MEDS: RIVAROXABAN 20 MG TAB PO SCH (18:03)
[2018-09-14] MEDS ORDERED: traZODone 100 MG TAB PO SCH (21:00)
[2018-09-14] MEDS: INSULIN GLARGINE 100 UNITS/ML UNIT SC SCH (21:47)
[2018-09-14] MEDS: FERROUS SULFATE 325 MG TAB PO SCH (21:49)
[2018-09-15 04:48] LABS: PLATELET COUNT 260 10^3/uL (150-400)
[2018-09-15] MEDS: INSULIN REGULAR HUMAN 100 UNIT/ML UNIT SC SCH ×4 (07:54→22:27)
[2018-09-15] MEDS: CLOPIDOGREL BISULFATE 75 MG TAB PO SCH (08:59)
[2018-09-15] MEDS: ATORVASTATIN CALCIUM 40 MG TAB PO SCH (09:00)
[2018-09-15] MEDS: PANTOPRAZOLE SODIUM 40 MG TAB PO SCH (09:00)
[2018-09-15] MEDS: LISINOPRIL 40 MG TAB PO SCH (09:04)
[2018-09-15] MEDS: TAMSULOSIN HCL 0.4 MG CAP PO SCH (09:04)
[2018-09-15] MEDS: GABAPENTIN 100 MG CAP PO SCH (09:05)
[2018-09-15] MEDS: FERROUS SULFATE 325 MG TAB PO SCH ×2 (09:05→20:32)
[2018-09-15] MEDS ORDERED: IOPAMIDOL (ISOVUE 370) 100 ML BTL IV ONE (10:33)
--- NOTE | 2018-09-15 13:22 | ECHO ---
[email or web address] [address] Main: [phone] Echocardiography Examination Transthoracic Name: JORDI PROCTOR MR#: [id number] Study Date: 09/15/2018 Study Time: 07:45 AM Date of : 1940 Age: 78 year(s) Height: 170.2 cm (67 in.) Weight: 82.1 kg (181 lb.) BSA: 1.94 m2 Gender: Male Examination: Echo Contrast: Image Quality: Adequate Rhythm: Heart Rate: BP: 158 mmHg/75 mmHg Indication: Cardiac: syncope, Murmur Procedure Staff Referring Physician: [employer] Salesperson: Latonya Reeves RDCS Reading Physician: Jj Lambert MD Requesting Provider: Ordering Physician: Lidia Alejandra Indication: Cardiac: syncope, Murmur Measurements Chambers AV/MV Label Value Normal Value Label Value Normal Value LVOTd 2.2 cm (1.9cm - 2.1cm) AR PHT 0.47 s LVOT VTI 18.3 cm (18cm - 22cm) AR PHT 469 ms LVDd, 2D 4.4 cm (4.2cm - 5.9cm) AR Vmax 3.9 m/s LVDs, 2D 3 cm (2.1cm - 4cm) AV PGmean 17 mmHg IVSd, 2D 1.3 cm (0.6cm - 1.1cm) AV Vmax 2.75 m/s LVPWd, 2D 1.2 cm (0.6cm - 1cm) PIETRO (VTI) 1.3 cm2 LVEF, BP 58 % (55% - 70%) MV E Vmax 0.97 m/s LVEF, 2D 58 % (54% - 74%) MV A Vmax 1.33 m/s LVOT PGmean 2 mmHg MV E/A 0.73 LVOT Vmean 0.67 m/s MV E/E' lateral 10.6 RVDd, 2D 3.5 cm (1.9cm - 3.8cm) MV E/E' septal 18.4 (0.45 - 1.25) LA Volume, BP 43 ml (18ml - 58ml) MV DT 243 ms LADs, 2D 3.8 cm (3cm - 4cm) MV E' septal 0.05 m/s LAESV index, BP 22.2 ml/m2 MV PHT 0.07 s RA Area 12.1 cm2 MVA PHT 3.2 cm2 Additional Vessels MV E' lateral 0.09 m/s Label Value Normal Value MV E/E' mean 13.86 AoAsc 4.2 cm MV PHT 68 ms AoRoot, 2D 3.9 cm (1.4cm - 2.6cm) MV E' mean 0.07 m/s Patient: JORDI PROCTOR Study Date: 09/15/2018 Page 1 of 3 07:45 AM IVC 1.7 cm (1.2cm - 2.3cm) TV/PV Label Value Normal Value RA Pressure 5 mmHg RVSP 31 mmHg TR Pmax 26 mmHg TR Vmax 2.57 m/s PV PGmax 4 mmHg PV Vmax, Caliper 1.03 m/s (0.6m/s - 0.9m/s) Conclusions Overall Conclusions: No pericardial Effusion. Normal left ventricular systolic function ejection fraction 60%. Concentric left ventricular hypertrophy. Aortic valve calcification with mild to moderate aortic stenosis. Mild aortic regurgitation. Mild tricuspid regurgitation with right ventricular systolic pressure of 31 mm of mercury. Ascending aortic dilatation at 4.2 cm. Findings Left Ventricle: Left ventricle is normal in size. Normal global systolic left ventricular function. The ejection fraction, measured by Simpsons method, is 58 %. EF range is estimated at 55 % - 60 %. There is mild concentric left ventricular hypertrophy. There are no regional wall motion abnormalities. Diastolic Dysfunction is indeterminate. Right Ventricle: Normal size right ventricle. Right ventricular systolic function is normal. Left Atrium: The left atrium is normal in size. Right Atrium: The right atrium is normal in size. Mitral Valve: Mitral valve appears structurally normal. Mild mitral regurgitation. No mitral valve stenosis. There is mild mitral annular calcification. Aortic Valve: Aortic leaflets are structurally normal. Mild aortic regurgitation is present. There is mild to moderate aortic stenosis. Aortic leaflets exhibit moderate calcification. Tricuspid Valve: Tricuspid valve leaflets are structurally normal. Mild tricuspid regurgitation. No tricuspid valve stenosis. Right Ventricular systolic pressure is measured at 31 mmHg. Pulmonary artery pressure normal. Pulmonic Valve: Pulmonic leaflets are structurally normal. Mild pulmonic valve regurgitation is present. Aorta: The aortic root size in 2D measures 3.9 cm. The ascending aorta measures 4.2 cm. Mild dilatation of the ascending aorta. Aorta Measurements AoRoot, 2D is 3.9 cm. IVC: The inferior vena cava is normal in size. Pericardium: A pericardial fat pad is present. No pericardial effusion. No pleural effusion present. Exam Details Procedure Ordered: Echo Procedure Status: Routine study Image Quality: Adequate Patient: JORDI PROCTOR Study Date: 09/15/2018 Page 2 of 3 07:45 AM Facility Location: Cardiac Echo 1 (No Signature Object) Patient: JORDI PROCTOR Study Date: 09/15/2018 Page 3 of 3 07:45 AM [id number]
[2018-09-15] MEDS ORDERED: traZODone 100 MG TAB PO SCH (14:09)
--- NOTE | 2018-09-15 16:31 | HOSPPROG ---
Hospitalist Progress Note Assessment/Plan: * Drop attack -he now states arms and legs bilateral became acutely weak causing fall, no LOC -was unable to move arms and legs for 4 hours, lying on ground -check MRI C-spine - neuro to see -interrogate loop recorder pending * MALHOTRA - 1500cc urine retained -Flomax started for BPH -DC home with argueta - outpatient urology follow-up scheduled 1 week -consider spine disease as cause of urinary retention - MRI pending * Pulmonary contusion due to trauma -doubt pneumonia - hold antibiotics * Pancreatic cyst -follow-up imaging 1 year * CAD/CABG/stent -Plavix * DM II * h/o stroke with bilateral 60% ICA stenosis -plavix, statin * Iron deficiency anemia -start PO iron -outpatient gi eval - heme check stool * Afib - recently discovered on loop recorder -on Xarelto Subjective: feels much better, dizziness resolved Objective: Vital Signs Temp Pulse Resp BP Pulse Ox 36.4 C 80 13 133/68 H 99 09/15/18 15:26 09/15/18 15:26 09/15/18 15:26 09/15/18 15:26 09/15/18 15:26 Laboratory Results 09/15/18 03:22 09/14/18 04:40 09/14/18 09/15/18 09/16/18 05:59 05:59 05:59 Intake Total 750 Output Total 1050 2250 1050 Balance -1050 -1500 -1050 PT 13.8 SEC (12.0-15.0) 09/13/18 15:00 INR 1.10 (0.83-1.16) 09/13/18 15:00 d/w Dr shah - he recommends repeat CTA head and neck ECHO - negative - Physical Exam Constitutional: no apparent distress, appears nourished, not in pain Cardiovascular: regular rate and rhythym, no murmur, rub, or gallop Respiratory: no respiratory distress, no rales or rhonchi, clear to auscultation Gastrointestinal: normoactive bowel sounds, soft, non-tender abdomen, no palpable masses Skin: no rashes or abrasions, no fluctuance, no induration Neurologic: AAOx3, sensation intact bilaterally Psychiatric: interacting appropriately, not anxious, not encephalopathic, thought process linear ICD10 Worksheet Patient Problems: Problems Problem Status Onset Acute ischemic stroke Acute Syncope Acute Pulmonary contusion Acute
--- NOTE | 2018-09-15 18:21 | PDCARPN ---
Cardiology Progress Note Chief Complaint: R/o TIA/CVA Assessment/Plan: Assessment: Syncope. R/o CVA Hx of Carotid dz, past CVA. No further near syncope or syncope. Loop recorder was interrogated showing no arrhythmias. Remote episode of Atrial Fib. on Eliquis. Likely genitourinary disorder. He will see urologist as outpatient. He is to go home with catheter. Plan: Likely home tomorrow. 09/15/18 18:15 Reviewed/Discussed With: multidisciplinary team Objective: Vital Signs (8 Hrs) Temp Pulse Resp BP Pulse Ox 09/15/18 15:26 36.4 C 80 13 133/68 H 99 09/15/18 11:15 36.7 C 72 13 156/75 H 100 Intake/Output (24 Hrs) 09/14/18 09/15/18 09/16/18 05:59 05:59 05:59 Intake Total 750 Output Total 1050 2250 1050 Balance -1050 -1500 -1050 Intake: Oral (ml) 750 Output: Urine (ml) 1050 2250 1050 Catheter 1050 2250 1050 Other: Weight 82.1 kg Number of Stools Toilet 1 Result Diagrams: 09/15/18 03:22 09/14/18 04:40 - Physical Exam Constitutional: no apparent distress Cardiovascular: regular rate and rhythm, no murmurs, no rubs Respiratory: clear to auscultate bilat, no crackles Skin: warm, no edema Neurologic: AAOx3 Psychiatric: cooperative ICD10 Worksheet Patient Problems: Problems Problem Status Onset Acute ischemic stroke Acute Syncope Acute Pulmonary contusion Acute
[2018-09-15] MEDS: RIVAROXABAN 20 MG TAB PO SCH (18:31)
--- NOTE | 2018-09-15 18:52 | GCON ---
[f rep st] CONSULTATION NEUROLOGIC CONSULTATION REFERRING PHYSICIAN: Anita Antony MD HISTORY: The patient is a 78-year-old gentleman who I am asked to see in neurologic consultation regarding an episode in which he fell and had weakness and specifically questions about the status of his cerebral vasculature system and the role of any contribution from this. He has a fairly complex history. This event occurred on September 13. The patient says that he had gotten up in the morning and could not initially notice any problem. He went to the bathroom to try and urinate and says he was leaning forward with his arms on the back of the bowl and his arm started to tremble and so did his legs and he lost muscle tone enough that he fell and struck his head on the bathtub. He says he may have transiently lost consciousness during that time. He tried to get up and could sit up and push with his arms, but his legs would not really support him. Over the next 6 hours, he rested there and says that it took that long for him to gain enough strength to support his own weight or at least pull his body by crawling. He said he was not paralyzed. He could move his arms and legs, they simply were not strong enough to pull him all the way up or support his own weight. Eventually, he got the assistance he needed and came to the hospital for evaluation. Lately he has been having urinary frequency and had a large volume of urine when he had a catheter put in. Since coming into the hospital, he has had rather extensive diagnostic studies, but no evidence of cerebral hemorrhage or stroke. He had a CT angiogram of the head and neck done earlier today. This was compared to April and overall no major changes. His degree of plaque in the vertebrobasilar system is generally less than 50% and similar in the carotid system, although other areas of narrowing in the posterior cerebral artery suggest a little more stenoses. There is a moderate degree of narrowing in the mid basilar artery with non calcific plaquing. Otherwise, no severe stenoses. His weakness he said really did not get back to what he considers nearly normal until today. He has done some ambulating and says he felt pretty good. In reviewing the past medical history, he says that he has never had this particular phenomenon occur before. There is a history of coronary disease and type 2 diabetes and hypertension and hyperlipidemia, AAA, and chronic back pain. He has a pacemaker and coronary bypass and stenting. He was seen by Dr. Sandoval of Neurology on April 29. At that time, it was noted that he had stroke/TIA and had right-sided weakness, speech problems and got tPA and symptoms improved. A prior stroke/TIA in September had similar symptoms that improved with tPA without residual problems and chronic back pain was noted that is followed by [facility]. He had reportedly needed to be on Plavix at that time but had been off it a few weeks prior to that event. That right- sided weakness and speech disturbance on April 28 improved after he did get the tPA. He got a brain MRI at that time on April 29. That showed no evidence of acute stroke, but white matter disease. Dr. Sandoval saw him again April 30. The patient did not have any further weakness. He added some aspirin to the Plavix at the time and planned for followup evaluation and had seen him in the office as well. The patient has had evaluation with Dr. Karel Farias who was not in favor of endarterectomy overall so far. MEDICATIONS: Medications the patient was taking coming to the hospital include trazodone, Xarelto, Protonix, lisinopril, insulin, gabapentin, Plavix and Lipitor. He is continuing on Plavix and Xarelto currently. ALLERGIES: No known drug allergies. OBJECTIVE: VITAL SIGNS: Blood pressure is 133/68, pulse of 80, respirations 13 , temperature 36.4. GENERAL: Well developed, no acute distress. NECK: Supple with no bruits or masses. CARDIAC: Regular rate and rhythm. NEURO: He is awake, alert, attentive, and fully oriented. Pupils 2 mm and reactive. Extraocular movements intact. Normal facial sensation and strength. Motor exam normal muscle bulk and tone with a little bit of proximal muscle weakness in the upper and lower extremities, but no focal weakness. Sensation is preserved for temperature, light touch. Reflexes are 1+. IMPRESSION: At this point, the patient is doing well without evidence of stroke. I do not think he had a stroke or a TIA. With regard to whether these cerebral vascular changes are symptomatic or specifically accounting for this event that occurred a few days ago, I am unable to say for sure. It is certainly not the degree of stenosis or findings that we would typically attribute to an episode of syncope. He was urinating when this occurred and probably had a vagal phenomenon and the moderate degree of stenoses in the anterior and posterior circulation probably contributed. I do not believe he should have carotid endarterectomy based on his history, and do not feel there is any specific role for posterior circulation interventional procedures. Continuing on Plavix is appropriate as well as his Xarelto. The relative weakness in the arms and legs is more likely to have been a result of cervical spine problems and perhaps a relatively brief spinal shock type phenomenon. He has not had an MRI of the cervical spine yet, but that is planned for later. The CT of the cervical spine obtained on September 13 did not show any acute fracture. There were degenerative changes. Total unit time of 55 minutes. I will follow up tomorrow with any further thoughts on this case, but encourage primary team or any consultants to contact with any specific neurologic questions. /[id number]/MODL MTDD
[2018-09-15] MEDS: INSULIN GLARGINE 100 UNITS/ML UNIT SC SCH (22:26)
--- NOTE | 2018-09-16 08:29 | NEUROPROG ---
Assessment: The patient is reporting no new problems today. His strength remains stable. The MRI shows severe spinal stenosis, particularly at the C5-C6 level, which likely accounts for this episode of relative quadrant paresis which has returned back to his baseline. However, he needs to have surgical consultation with Neurosurgery for consideration of decompression on a nonemergent basis. That should be arranged as an outpatient. For his general neurologic condition and regular follow-up, he should see my partner, Dr. Sandoval, who has been following him already. As previously noted, I do not feel the cerebrovascular disease changes require any invasive procedures and specifically do not feel endarterectomy is indicated in his case. I will sign off. Please contact me with any additional questions. Objective: Vital Signs Temp Pulse Resp BP Pulse Ox 36.5 C 79 15 112/51 L 91 L 09/16/18 06:07 09/16/18 06:07 09/16/18 06:07 09/16/18 06:07 09/16/18 06:07 Laboratory Results 09/14/18 04:40 09/15/18 09/16/18 09/17/18 05:59 05:59 05:59 Intake Total 750 480 Output Total 2250 2100 Balance -1500 -1620 PT 13.8 SEC (12.0-15.0) 09/13/18 15:00 INR 1.10 (0.83-1.16) 09/13/18 15:00 Allergies/Adverse Reactions: No Known Allergies Allergy (Verified 04/29/18 07:14)
[2018-09-16] MEDS: INSULIN REGULAR HUMAN 100 UNIT/ML UNIT SC SCH ×2 (08:39→12:40)
[2018-09-16] MEDS: ATORVASTATIN CALCIUM 40 MG TAB PO SCH (08:40)
[2018-09-16] MEDS: FERROUS SULFATE 325 MG TAB PO SCH (08:40)
[2018-09-16] MEDS: PANTOPRAZOLE SODIUM 40 MG TAB PO SCH (08:40)
[2018-09-16] MEDS: CLOPIDOGREL BISULFATE 75 MG TAB PO SCH (08:40)
[2018-09-16] MEDS: LISINOPRIL 40 MG TAB PO SCH (08:40)
[2018-09-16] MEDS: TAMSULOSIN HCL 0.4 MG CAP PO SCH (08:40)
[2018-09-16] MEDS: GABAPENTIN 100 MG CAP PO SCH (08:41)
[2018-09-16 11:14] VITALS: BP 103/78
--- NOTE | 2018-09-16 13:29 | PDIAF ---
- Diagnosis Diagnosis: Urinary Retention, Severe Cervical Stenosis Code Status: Do Not Resuscitate - Medication Management Discharge Medications: electronically signed and located in the Home Medication List. - Orders Services needed: Home Care, Registered Nurse, Physical Therapy, Occupational Therapy Home Care Face to Face: I certify that this patient was under my care and that I had the required [id number] encounter meeting the encounter requirements on the discharge day. My findings support the fact that the patient is homebound as defined in Home Care Face to Face Continued: CMS Chapter 7 Medicare Benefits Manual 30.1.1 , The condition of the patient is such that there exists a normal inability to leave home and consequently, leaving home would require a considerable and taxing effort. Additional Instructions: follow-up with neurosurgery, Dr. Torre of [facility] in 4-6 weeks. Their office phone number is [phone]. - Follow Up Care Current Providers and Referrals: Jefefrson Haile MD [Primary Care Provider] - As per Instructions Don Torre MD [Medical Doctor] - follow up as scheduled (4-6 weeks)
--- NOTE | 2018-09-16 13:53 | ASMTLACE ---
LACE Length of stay for Answers: 2 days current admission Comorbidities - select Answers: Cerebrovascular disease all that apply (CVA, TIA, aneurysms, vasc ular dementia) Coronary Artery Disease Diabetes (uncontrolled or controlled) Previous myocardial infarction Other Notes: HTN; HLD # of Emergency department Answers: 3-4 visits in the last 6 months Score: 11 Date Signed: 09/16/2018 01:52 PM Electronically Signed By:Ester Osullivan RN
--- NOTE | 2018-09-16 13:56 | ASMTCMCOM ---
CM Note CM Note Notes: Patient medically cleared for discharge with [facility] to provided RN. PT and OT. Patient will dc with argueta and f/u with neurosurgery as outpatient. Daughter bedside and will transport. Plan: Dc to home with [facility]. Date Signed: 09/16/2018 01:56 PM Electronically Signed By:Ester Osullivan RN
--- NOTE | 2018-09-16 15:54 | PDDCSUM ---
Discharge Summary Discharge Summary: Date of Admission: 09/13/2018 Date of Discharge: 09/16/2018 Consults: Neurosurgery Procedures: CT head, CTA Head/Neck, MRI C Spine, CT Cervical/Thoracic/Lumbar Spine, Chest CT, Abd CT Followup: Neurosurgery, Urology, PCP Hospital Course Problem List: * Drop attack -Arms and legs bilateral became acutely weak causing fall, no LOC -was unable to move arms and legs for 4 hours, lying on ground -MRI C-spine performed which showed severe degenerative changes in C4-5, C5- 6 with severe spinal canal stenosis and severe b/l foraminal narrowing -Neurosurgery consulted who recommend outpatient followup for further evaluation and management of MRI findings -interrogate loop recorder with no acute events -Evaluated by Neurology who recommend outpatient followup for general neurologic condition and regular follow-up, Dr. Sandoval, who has been following him already, they do not feel the cerebrovascular disease changes require any invasive procedures and specifically do not feel endarterectomy is indicated in his case * MALHOTRA - 1500cc urine retained during admission -Flomax started for BPH -DC home with argueta - outpatient urology follow-up scheduled 1 week -consider spine disease as cause of urinary retention - w/u as above * Pulmonary contusion due to trauma -doubt pneumonia - held antibiotics, consider reimaging in 6-12 months to ensure healing * Pancreatic cyst -follow-up imaging 1 year * CAD/CABG/stent -Plavix * DM II * h/o stroke with bilateral 60% ICA stenosis -plavix, statin * Iron deficiency anemia -start PO iron -outpatient gi eval - heme check stool * Afib - recently discovered on loop recorder -on Xarelto Time spent on discharge was >35 minutes with >50% of time spent on patient education and counseling.
--- NOTE | 2018-09-16 17:20 | GCON ---
[f rep st] CONSULTATION DATE OF CONSULTATION: 09/16/2018 REASON FOR CONSULTATION: Spinal stenosis with spinal cord injury. HISTORY OF PRESENT ILLNESS: The patient is a 78-year-old gentleman with a fairly comprehensive past medical history, including coronary artery disease, carotid artery disease, hypertension, history of CVA x2, for which he is anticoagulated, implantable loop recorder, CABG x6 with 6 stents, who presented to the emergency department on the August, after a syncopal episode. The patient states he has urinary frequency and on the morning of August, was at the toilet urinating when he felt dizzy, lightheaded, nauseous, and diffuse extremity weakness. He had a syncopal event. The patient states he fell down and denies hitting his head or loss of consciousness. He was lying on his right side and states he was unable to move his arms or legs because of weakness. It took him approximately 6 hours for him to get to his phone to be able to call his daughter. He called his daughter who then called the ambulance and he was brought to [facility] Emergency department on the August, for further evaluation and management. The patient was admitted to the medical service and further evaluation was completed. An MRI of the cervical spine was eventually obtained and he was found to have cervical spine stenosis for which a neurosurgical consultation is being requested today. The patient states that he has returned back to his baseline with regard to his strength. Denies any new numbness, tingling, weakness of the upper or lower extremities. No new urinary continence. However , he does have a Chaparro catheter in place during my conversation with him. MEDICATIONS PRIOR TO ADMISSION: 1. Plavix 75 mg p.o. daily. 2. Zestril 40 mg p.o. daily. 3. Protonix 40 mg p.o. daily. 4. Neurontin 100 mg p.o. daily. 5. Trazodone 100 mg p.o. at bedtime. 6. Lipitor 80 mg p.o. daily. 7. Insulin Levemir 15 units subcu at bedtime. 8. Xarelto 20 mg p.o. daily. PAST MEDICAL HISTORY: 1. Diabetes type 2. 2. Hypertension. 3. Hyperlipidemia. 4. Recently diagnosed AAA. 5. Chronic back pain. 6. Coronary artery disease. PAST SURGICAL HISTORY: 1. Coronary artery bypass surgery. 2. Coronary stent x6. FAMILY HISTORY: 1. Significant for coronary artery disease in his father, brother, and mother. 2. Myocardial infarction. SOCIAL HISTORY: The patient denies tobacco, alcohol, or other illicit drug use. He recently moved here from [place] and lives independently. His daughter lives approximately 2-3 doors away from him. REVIEW OF SYSTEMS: Complete 10-point review of systems is from the patient's intake form and reviewed by myself. Significant only for those noted above in the HPI. ALLERGIES: No known drug allergies. PHYSICAL EXAMINATION: VITAL SIGNS: Blood pressure 103/78, heart rate 69, respiratory rate 12, saturating 93% on room air, temperature is 36.7. GENERAL: The patient is sitting at the bedside in the chair in no acute distress. He is quite pleasant and cooperative with the examination. Affect appears appropriate. HEENT: Head is atraumatic, normocephalic. EYES: Pupils are equal, round, and reactive to light bilaterally. Anicteric. NEUROLOGIC: Cranial nerves 2-12 appear to be intact. Face is symmetric. Tongue protrudes midline. Uvula and palate elevate symmetrically. He has intact sensation to light touch on the face bilaterally. He has intact hearing to light finger scratch bilaterally. Shoulder shrug is symmetric. Motor: 5/5 strength with bilateral recruitment consultant strength, biceps, triceps, deltoids, hip flexors, knee flexion and extension, plantar and dorsiflexion, and extensor hallucis longus. Sensory : He has intact sensation to light touch throughout all major dermatomes of the bilateral upper and lower extremities throughout. Reflexes: He has no Enciso, no Babinski. He has 1+ reflexes at the bilateral brachioradialis and patellae. OTHER: No midline cervical spine tenderness. MEDICAL DECISION MAKING: Patient underwent MRI of the cervical spine which was reviewed by myself on the [facility] PACS system, completed on the August. There is also cervical spine CT completed on the August. He has evidence of severe degenerative changes in the cervical spine predominantly between C4-5 and C6-C7 which is worse at the C5-C6 level where there is severe spinal stenosis and severe bilateral neural foraminal narrowing. There is questionable myelomalacia of the cord between C4-5 and C6- C7. There is no evidence of any spinal fractures on the CT scan. ASSESSMENT/PLAN: The patient is a 78-year-old gentleman who presents to the emergency department after a syncopal fall. He had transient weakness of his upper and lower extremities for approximately 6 hours and was admitted to the hospital for further workup to the medical service. His MRI of the cervical spine was completed which demonstrates severe spinal stenosis between C4-C5 and C6-C7, with some evidence of cord injury myelomalacia. The patient at this time , has recovered completely and is neurologically intact. He is on anticoagulation. We reviewed with the patient and his daughter the images and the likelihood that he suffered a spinal cord injury and contusion. He has recovered fully and at this time, there is no emergency indicated to address his spinal stenosis. He will likely require surgical intervention including a C4-5, C5-6, and C6-7 ACDF to address the spinal stenosis. However, at this point, the patient would like to be discharged home and follow up with us as an outpatient. I think this is reasonable. However, he does not understand he is at increased risk of another spinal cord injury in the event of another traumatic event or syncopal episode which is likely given his past medical history. He will be discharged by the medical service and he will plan to follow up with our clinic in approximately 4 weeks at which point we can further address the possibilities of any surgical intervention if he can be cleared by his lending advisor. The patient and his daughter's questions were all answered today prior to the discharge. Thank you for this consultation. /[id number]/MODL MTDD
== END 2018-09-16 14:18 | disposition home health service (06) | DRG 312 ==
LOC: EDUNIT# → F2W 18:07 → OBSVTOIN 19:20
PROVIDERS: ADMIT Student in an Organized Health Care Education/Training Program; ATTEND Internal Medicine
DX: R55 Syncope and collapse (principal); M48.02 Spinal stenosis, cervical region; M47.812 Spondylosis without myelopathy or radiculopathy, cervical region; N40.1 Benign prostatic hyperplasia with lower urinary tract symptoms; N13.8 Other obstructive and reflux uropathy; S27.321A Contusion of lung, unilateral, initial encounter; W19.XXXA Unspecified fall, initial encounter; K86.2 Cyst of pancreas; I48.0 Paroxysmal atrial fibrillation; I25.10 Atherosclerotic heart disease of native coronary artery without angina pectoris; I25.2 Old myocardial infarction; E11.9 Type 2 diabetes mellitus without complications; E78.5 Hyperlipidemia, unspecified; I10 Essential (primary) hypertension; F01.50 Vascular dementia, unspecified severity, without behavioral disturbance, psychotic disturbance, mood disturbance, and anxiety; G62.9 Polyneuropathy, unspecified; I71.4 Abdominal aortic aneurysm, without rupture; E86.9 Volume depletion, unspecified; Z95.1 Presence of aortocoronary bypass graft; Z95.5 Presence of coronary angioplasty implant and graft; Z86.73 Personal history of transient ischemic attack (TIA), and cerebral infarction without residual deficits; Z79.01 Long term (current) use of anticoagulants; Z79.02 Long term (current) use of antithrombotics/antiplatelets
CPT/HCPCS: 82435-PO; 82565-PO; 82947-PO; 84132-PO; 84295-PO; 84484-ER; 84520-PO; 85014-ER; 96374; 97116-GP; 97161-GP; 97165-GO; 97535-GO; J1170; J1815; Q9967

== ENCOUNTER 2018-09-25 17:42 | Inpatient (IN) | payer OTHER | END 2018-09-29 17:35 | disposition home health service (06) | LOC: F2W 21:00 ==

== ENCOUNTER 2018-10-02 12:29 | Inpatient (IN) | payer OTHER | END 2018-10-08 15:13 | LOC: F3N 15:13 ==

== ENCOUNTER 2018-10-21 04:46 | Inpatient (IN) | payer OTHER | END 2018-10-24 14:15 | LOC: F3N 10-22 18:28 → F2W 14:02 ==